=== PATIENT | female | born 1950 | race Caucasian/White ===

== ENCOUNTER → 2020-03-15 12:30 | Outpatient (BNVA) | payer MEDICARE, SELFPAY | PROVIDERS: Visit Provider Internal Medicine | DX: I25.10 Atherosclerotic heart disease of native coronary artery without angina pectoris (principal); E78.5 Hyperlipidemia, unspecified; Z95.5 Presence of coronary angioplasty implant and graft | CPT/HCPCS: 93005; 99212 ==

== ENCOUNTER 2020-03-19 07:18 | Outpatient (REF) | payer MEDICARE, SELFPAY ==
[2020-03-19 08:28] LABS: Alanine Aminotransferase 22 U/L (0-31); Albumin Level 4.1 g/dL (3.5-5.0); Alkaline Phosphatase 70 U/L (39-117); Aspartate Amino Transferase 17 U/L (5-31); Bilirubin Direct 0.2 mg/dL (0.0-0.5); Bilirubin Total 0.6 mg/dL (0.0-1.0); Cholesterol 193 mg/dL; HDL Cholesterol 65 mg/dL; LDL Cholesterol Calculated 91 mg/dl; Total Protein 6.7 g/dL (6.5-8.0); Triglycerides 188 mg/dL
== END 2020-03-19 07:19 | disposition home or self-care (01) ==
LOC: HO.LAB 07:18
PROVIDERS: PCP Internal Medicine; Visit Provider Internal Medicine
DX: E78.5 Hyperlipidemia, unspecified (principal); I25.10 Atherosclerotic heart disease of native coronary artery without angina pectoris
CPT/HCPCS: 36415; 80061; 80076

== ENCOUNTER 2020-03-30 16:02 | Outpatient (REF) | payer MEDICARE, SELFPAY ==
[2020-03-30 16:47] LABS: MANUAL DIFF FLAG NO
[2020-03-30 16:50] LABS: Basophils Percent Auto 0.5 % (0-2); Eosinophils Absolute Auto 0.1 X10*3/uL (0.0-0.4); Eosinophils Percent Auto 1.7 % (0-4); Hemoglobin 14.6 g/dl (12.0-16.0); Imm Gran Abs Auto 0.01 X10*3/uL (0.00-0.03); Imm Gran Pct Auto 0.1 % (0.0-0.4); Lymphocytes Absolute Auto 2.4 X10*3/uL (1.2-4.9); Lymphocytes Percent Auto 29.1 % (20-40); Mean Corpuscular HGB Conc 33.2 g/dl (31.0-35.0); Mean Corpuscular Hemoglobin 29.6 pg (27.0-33.0); Mean Corpuscular Volume 89.1 fL (80-98); Mean Platelet Volume 10.1 fL (9.4-12.3); Monocytes Absolute Auto 0.8 X10*3/uL (0.1-1.2); Monocytes Percent Auto 9.9 % (2-11); Neutrophils Absolute Auto 4.8 X10*3/uL (2.0-8.3); Neutrophils Percent Auto 58.7 % (45-73); Platelet Count 259 X10*3/uL (160-400); Red Blood Count 4.94 X10*6/uL (4.20-5.50); Red Cell Distribution Width 12.8 % (11.0-16.0); White Blood Count 8.2 X10*3/uL (4.8-10.8)
[2020-03-30 17:13] LABS: Alanine Aminotransferase 25 U/L (0-31); Albumin Level 4.4 g/dL (3.5-5.0); Alkaline Phosphatase 64 U/L (39-117); Anion Gap 12 (12-20); Aspartate Amino Transferase 22 U/L (5-31); Bilirubin Total 0.4 mg/dL (0.0-1.0); Blood Urea Nitrogen 21 mg/dL (9-16); Calcium 9.8 mg/dL (8.4-10.2); Carbon Dioxide 28 mmol/L (22-29); Chloride 107 mmol/L (96-108); Estimated Glomerular Filt Rate 49; Glucose Random 82 mg/dL (60-115); Potassium 5.2 mmol/L (3.3-5.1); Sodium 142 mmol/L (135-145); Total Protein 7.2 g/dL (6.5-8.0)
== END 2020-03-30 16:03 | disposition home or self-care (01) ==
LOC: HO.LAB 16:02
PROVIDERS: PCP Internal Medicine; Visit Provider Internal Medicine
DX: I12.9 Hypertensive chronic kidney disease with stage 1 through stage 4 chronic kidney disease, or unspecified chronic kidney disease (principal); N18.9 Chronic kidney disease, unspecified; I25.10 Atherosclerotic heart disease of native coronary artery without angina pectoris
CPT/HCPCS: 36415; 80053; 85025

== ENCOUNTER 2020-09-05 15:08 | Emergency (ER) | payer MEDICARE, SELFPAY ==
--- NOTE | ~2020-09-05 | XR_ITS ---
EXAMINATION: XR FOOT, RIGHT CLINICAL INFORMATION: Status post hyperextension injury. Pain at the base of the fourth and fifth toes. COMPARISON: None TECHNIQUE: AP, lateral, and oblique views of the right foot. FINDINGS: There is a minimally displaced oblique fracture distal fifth metatarsal with mild soft tissue swelling. No additional fractures seen. There is no dislocation. There is a moderate-sized retrocalcaneal enthesophyte. XR/XR foot RT min 3V IMPRESSION: Oblique displaced fracture distal fifth metatarsal with mild soft tissue swelling. Moderate-sized retrocalcaneal enthesophyte.
[2020-09-05 15:15] VITALS: BP 159/72; PULSE 71; RESP 16; TEMP 37.1; O2SAT 96; BMI 35.2
--- NOTE | 2020-09-05 15:18 | ED.LOWEXIN ---
HPI - Extremity Injury (Lower) General Chief Complaint: Extremity Injury, Lower Stated Complaint: Slipped on some stairs Time Seen by Provider: 09/05/20 15:17 Source: patient Mode of arrival: ambulatory Limitations: no limitations History of Present Illness HPI Narrative: 69 y/o female with history of CAD s/p stent in 2014, HLD who is presenting with right foot pain after she tripped going up stairs at home in her basement just prior to arrival. She report hitting her toes on the step and her 4th and 5th toes bend upward. She had immediate pain, some swelling and bruising. She is unable to walk on her right foot so she came to the ER for further evaluation. She denies any ankle, knee or hip injury. She did not fall, hit her head or lose consciousness. MD complaint: foot injury Onset (ago): hour(s) (1) Injury: Right: foot and toes Type of Injury: hyperextension Place: home Severity: moderate Severity scale (1-10): 5 Relieving factors: immobilization and rest Exacerbating factors: weight bearing, movement and palpation Associated symptoms: swelling and unable to bear weight Other symptoms: none Treatments prior to arrival: cold therapy Related Data Home Medications Medication Instructions Recorded Confirmed aspirin 81 mg tablet,delayed 81 mg PO DAILY 03/15/20 03/15/20 release atorvastatin 80 mg tablet 80 mg PO DAILY 03/15/20 03/15/20 Previous Rx's Medication Instructions Recorded ibuprofen 600 mg PO Q8H PRN #20 tab 09/05/20 oxycodone 5 mg PO Q8H PRN #6 tab 09/05/20 Allergies Allergy/AdvReac Type Severity Reaction Status Date / Time No Known Allergies Allergy Verified 09/05/20 15:15 [No Known Allergies*] Review of Systems Review of Systems: Constitutional: No Fever, No Chills CV: no chest pain Gastrointestinal: No Nausea, No Vomiting, No abdominal Pain Musculoskeletal: + joint pain, No Myalgias Skin: No Skin Lesions, No rash Neuro: No Weakness, No Numbnes Heme/Lymph: + Bruising, No Lymphadenopathy PMFSH Past Medical History Attestation statement: The following information was validated with the patient. Medical History Atherosclerotic cardiovascular disease Other and unspecified hyperlipidemia Surgical History History of cardiac catheterization (~05/09/14) Stented coronary artery Family History Family History (Updated 03/15/20 @ 12:50 by LEONID Fernandez) Father Cancer Mother Cancer Social History Social History (Updated 03/15/20 @ 12:47 by LEONID Fernandez) Advance Directives: No Advance Directives Information Provided: No Physical Exam Vital Signs: Vital Signs: Last Vital Signs Temp 98.7 F 09/05/20 15:15 Pulse 71 09/05/20 15:15 Resp 16 09/05/20 15:15 BP 159/72 H 09/05/20 15:15 Pulse Ox 96 09/05/20 15:15 Body Mass Index 35.2 Appearance: Alert. Oriented X3. No acute distress. HEENT: normal inspection CVS: Normal heart rate and rhythm. Pulses normal. Respiratory: No respiratory distress. Skin: Skin warm and dry. Normal skin color. Normal skin turgor. No rashes. Extremities: right foot with mild ecchymosis and swelling at the base of digits 4 and 5, tender to touch at distal tarsals, able to wiggles toes, good cap refill. normal right ankle inspection, normal ROM, Neuro: Oriented X 3. No motor deficit. No sensory deficit. Unable to assess gait due to pain Course Course Course Narrative: 69 y/o female presenting with right lateral foot pain and bruising after she tripped on her basement stairs today. Unable to bear weight due to pain. Will get XR's for further evaluation. Reevaluation(s) Reevaluation #1: XR showing Oblique displaced fracture distal fifth metatarsal with mild soft tissue swelling. Ortho TT for recs. Reevaluation #2: Rachel recommending non-operative management at this time. NWB and f/u in the clinic in 7-[address] in boot and provide crutches. She is stable for d/c home with pain control and ortho follow up. Consultations Consultation #1: Ortho - Rachel Villafuerte PA-C Discharge Plan Discharge Clinical Impression: Broken foot Qualifiers: Encounter type: initial encounter Fracture type: closed Laterality: right Qualified Code(s): S92.901A - Unspecified fracture of right foot, initial encounter for closed fracture Patient Disposition: Home, Self-Care Instructions: Foot Fracture in Adults (ED) Additional Instructions: Your x-ray today showed a broken bone in your foot. Orthopedics are recommending NON-WEIGHT BEARING status of your right foot. Wear the Boot provided in the ER for support and comfort. Elevate and ice your foot when possible to help with swelling and discomfort. Take the prescribed medications as needed for pain. Recommend Tylenol 975 mg every 6 hours around the clock. Follow up with Orthopedics in 7-10 days in the office - number listed below. Prescriptions: New ibuprofen 600 mg tablet 600 mg PO Q8H PRN (Reason: pain) Qty: 20 RF: 0 oxycodone 5 mg tablet 5 mg PO Q8H PRN (Reason: pain) Qty: 6 RF: 0 No Action atorvastatin 80 mg tablet 80 mg PO DAILY RF: 0 aspirin 81 mg tablet,delayed release (DR/EC) 81 mg PO DAILY RF: 0 Referrals: Rachel Villafuerte PA-C [[facility] [employer]] - 1 week (Oblique displaced fracture distal fifth metatarsal with mild soft tissue swelling.)
== END 2020-09-05 16:40 | disposition home or self-care (01) ==
PROVIDERS: Emergency Provider Emergency Medicine; PCP Internal Medicine
DX: S92.901A Unspecified fracture of right foot, initial encounter for closed fracture (principal); M79.671 Pain in right foot; I25.10 Atherosclerotic heart disease of native coronary artery without angina pectoris; W10.9XXA Fall (on) (from) unspecified stairs and steps, initial encounter; Y93.9 Activity, unspecified; Y92.009 Unspecified place in unspecified non-institutional (private) residence as the place of occurrence of the external cause; Y99.9 Unspecified external cause status; Z79.899 Other long term (current) drug therapy; Z79.82 Long term (current) use of aspirin
CPT/HCPCS: 73630; 99284

== ENCOUNTER 2020-09-17 07:43 | Outpatient (REF) | payer MEDICARE, SELFPAY ==
--- NOTE | ~2020-09-17 | XR_ITS ---
EXAMINATION: XR FOOT, RIGHT CLINICAL INFORMATION: Fracture follow-up COMPARISON: 09/05/2020 TECHNIQUE: AP, lateral, and oblique views of the right foot. FINDINGS: There is an enthesophyte of the Achilles insertion onto the posterior calcaneus. Oblique fracture of the distal metadiaphysis of the fifth metatarsal with approximately 0.3 cm medial displacement of the distal fragment. Currently, no periosteal reaction at the fracture site. Otherwise, metatarsals are unremarkable. The comminuted fracture of the proximal phalanx of the fourth toe is mildly displaced and unchanged compared to 09/05/2020. Soft tissues are swollen in the forefoot. XR/XR foot RT min 3V IMPRESSION: * Currently, no evidence of healing of the displaced oblique fracture of the fifth metatarsal. * Also, no evidence of healing of the mildly displaced, comminuted fractures of the fourth proximal phalanx.
== END 2020-09-17 07:44 | disposition home or self-care (01) ==
LOC: HO.HOSX 07:43
PROVIDERS: Visit Provider Physician Assistant
DX: S92.351A Displaced fracture of fifth metatarsal bone, right foot, initial encounter for closed fracture (principal)
CPT/HCPCS: 73630; 99202

== ENCOUNTER 2020-10-08 07:35 | Outpatient (REF) | payer MEDICARE, SELFPAY ==
--- NOTE | ~2020-10-08 | XR_ITS ---
EXAMINATION: XR FOOT, RIGHT CLINICAL INFORMATION: Fifth metatarsal fracture. COMPARISON: Right foot radiographs dated 09/17/2020. TECHNIQUE: AP, lateral, and oblique views of the right foot. FINDINGS: Redemonstration of an oblique 5th metatarsal fracture in unchanged anatomic alignment. Redemonstration of a mildly displaced, comminuted 4th proximal phalangeal fracture in unchanged anatomic alignment. No new fracture or dislocation. No abnormal soft tissue calcification. No osseous erosion. Dorsal calcaneal enthesophyte. XR/XR foot RT min 3V IMPRESSION: Fifth metatarsal fracture in unchanged anatomic alignment. Fourth proximal phalangeal fracture in unchanged anatomic alignment.
== END 2020-10-08 07:36 | disposition home or self-care (01) ==
LOC: HO.HOSX 07:35
PROVIDERS: Visit Provider Physician Assistant
DX: S92.351D Displaced fracture of fifth metatarsal bone, right foot, subsequent encounter for fracture with routine healing (principal); W10.8XXD Fall (on) (from) other stairs and steps, subsequent encounter
CPT/HCPCS: 73630; 99212

== ENCOUNTER 2020-10-30 07:59 | Outpatient (REF) | payer MEDICARE, SELFPAY ==
--- NOTE | ~2020-10-30 | XR_ITS ---
EXAMINATION: XR FOOT, RIGHT CLINICAL INFORMATION: Fifth metatarsal fracture. COMPARISON: Most recent right foot radiographs dated 10/08/2020. TECHNIQUE: AP, lateral, and oblique views of the right foot. FINDINGS: Redemonstration of an oblique fracture through the 5th metatarsal in unchanged anatomic alignment. Comminuted, minimally displaced proximal 4th phalangeal fracture in unchanged anatomic alignment with new bone/callus formation. No acute fracture or dislocation. Dorsal calcaneal enthesophyte. XR/XR foot RT min 3V IMPRESSION: Fifth metatarsal fracture in unchanged anatomic alignment. Proximal 4th phalangeal fracture in unchanged anatomic alignment with new bone/callus formation.
== END 2020-10-30 08:00 | disposition home or self-care (01) ==
LOC: HO.HOSX 07:59
PROVIDERS: Visit Provider Physician Assistant
DX: S92.351D Displaced fracture of fifth metatarsal bone, right foot, subsequent encounter for fracture with routine healing (principal)
CPT/HCPCS: 73630; 99212

== ENCOUNTER 2020-12-11 07:57 | Outpatient (REF) | payer MEDICARE, SELFPAY ==
--- NOTE | ~2020-12-11 | XR_ITS ---
EXAMINATION: XR FOOT, RIGHT CLINICAL INFORMATION: Pain right foot. COMPARISON: None TECHNIQUE: AP, lateral, and oblique views of the right foot. FINDINGS: There is mildly displaced old fracture distal fifth metatarsal. Very minimal callus formation seen. Nondisplaced fracture involving the proximal phalanx fourth digit is noted and is stable. There are no new fractures seen. There is mild lateral foot soft tissue swelling. The ankle mortise and subtalar joints are normal. There is a moderate size retrocalcaneal heel enthesophyte. The soft tissues are normal.. XR/XR foot RT min 3V IMPRESSION: Mildly displaced oblique fracture distal fifth metatarsal with very little callus formation. No change from 10/30/2020. Old proximal phalanx fourth medical tarsal fracture, stable or no callus formation. Moderate size retrocalcaneal enthesophyte.
== END 2020-12-11 07:58 | disposition home or self-care (01) ==
LOC: HO.HOSX 07:57
PROVIDERS: Visit Provider Physician Assistant
DX: S92.351A Displaced fracture of fifth metatarsal bone, right foot, initial encounter for closed fracture (principal)
CPT/HCPCS: 73630; 99212

== ENCOUNTER 2020-12-19 09:31 | Outpatient (REF) | payer MEDICARE, SELFPAY | END 2020-12-19 09:32 | disposition home or self-care (01) | LOC: HO.LAB 09:31 | PROVIDERS: Visit Provider Internal Medicine | DX: Z20.822 Contact with and (suspected) exposure to COVID-19 (principal) | CPT/HCPCS: C9803; U0003; U0005 ==

== ENCOUNTER 2020-12-24 08:49 | Outpatient (REF) | payer MEDICARE, SELFPAY ==
[2020-12-24 09:09] LABS: COVID-19 Test Positive (Negative)
== END 2020-12-24 08:50 | disposition home or self-care (01) ==
LOC: HO.LAB 08:49
PROVIDERS: Visit Provider Internal Medicine
DX: Z20.822 Contact with and (suspected) exposure to COVID-19 (principal)
CPT/HCPCS: 36415; 87635; C9803

== ENCOUNTER 2021-01-01 08:15 | Outpatient (REF) | payer MEDICARE, SELFPAY ==
[2021-01-01 08:37] LABS: COVID-19 Test Negative (Negative)
== END 2021-01-01 08:16 | disposition home or self-care (01) ==
LOC: HO.LAB 08:15
PROVIDERS: Visit Provider Internal Medicine
DX: Z20.822 Contact with and (suspected) exposure to COVID-19 (principal)
CPT/HCPCS: 36415; 87635; C9803

== ENCOUNTER 2021-01-10 11:34 | Outpatient (REF) | payer MEDICARE, SELFPAY ==
[2021-01-10 13:45] LABS: MANUAL DIFF FLAG NO
[2021-01-10 13:56] LABS: Basophils Absolute Auto 0.1 X10*3/uL (0.0-0.2); Basophils Percent Auto 0.8 % (0-2); Eosinophils Absolute Auto 0.2 X10*3/uL (0.0-0.4); Eosinophils Percent Auto 2.8 % (0-4); Hematocrit 42.8 % (37.0-47.0); Hemoglobin 14.3 g/dl (12.0-16.0); Imm Gran Abs Auto 0.02 X10*3/uL (0.00-0.03); Imm Gran Pct Auto 0.3 % (0.0-0.4); Lymphocytes Absolute Auto 1.7 X10*3/uL (1.2-4.9); Lymphocytes Percent Auto 25.3 % (20-40); Mean Corpuscular HGB Conc 33.4 g/dl (31.0-35.0); Mean Corpuscular Hemoglobin 29.5 pg (27.0-33.0); Mean Corpuscular Volume 88.2 fL (80.0-98.0); Mean Platelet Volume 10.6 fL (9.4-12.3); Monocytes Absolute Auto 0.7 X10*3/uL (0.1-1.2); Neutrophils Absolute Auto 3.9 x10*3/uL (2.0-8.3); Neutrophils Percent Auto 59.8 % (45-73); Platelet Count 288 X10*3/uL (160-400); Red Blood Count 4.85 X10*6/uL (4.20-5.50); Red Cell Distribution Width 12.8 % (11.0-16.0); White Blood Count 6.5 X10*3/uL (4.8-10.8)
[2021-01-10 14:41] LABS: Alanine Aminotransferase 29 U/L (0-31); Albumin Level 4.1 g/dL (3.5-5.0); Alkaline Phosphatase 70 U/L (39-117); Anion Gap 11 (12-20); Aspartate Amino Transferase 22 U/L (5-31); Bilirubin Total 0.5 mg/dL (0.0-1.0); Blood Urea Nitrogen 17 mg/dL (9-16); C Reactive Protein 0.27 mg/dL (< or = 0.50); Calcium 9.3 mg/dL (8.4-10.2); Carbon Dioxide 25 mmol/L (22-29); Chloride 105 mmol/L (96-108); Estimated Glomerular Filt Rate 54; Glucose Random 105 mg/dL (60-115); Potassium 4.3 mmol/L (3.3-5.1); Sodium 137 mmol/L (135-145); Total Protein 6.9 g/dL (6.5-8.0)
[2021-01-10 14:52] LABS: Lactate Dehydrogenase 171 U/L (122-220)
== END 2021-01-10 11:35 | disposition home or self-care (01) ==
LOC: HO.10HDL 11:34
PROVIDERS: Visit Provider Internal Medicine
DX: E78.00 Pure hypercholesterolemia, unspecified (principal); R22.9 Localized swelling, mass and lump, unspecified; Z98.890 Other specified postprocedural states
CPT/HCPCS: 36415; 80053; 83615; 85025; 86140

== ENCOUNTER 2021-02-11 09:21 | Outpatient (REF) | payer MEDICARE, SELFPAY ==
--- NOTE | ~2021-02-11 | CT_ITS ---
EXAMINATION: CT SOFT TISSUE NECK WITHOUT CONTRAST CLINICAL INFORMATION: Swelling, mass, lump. COMPARISON: None TECHNIQUE: Helical imaging was performed in the axial plane with generation of coronal and sagittal reformatted images. This CT examination was performed using dose optimization techniques as appropriate, variously including the following: *Automated exposure control *Adjustment of mA and/or kV according to patient size (this includes techniques or standardized protocols for targeted exams where dose is matched to indication/reason for exam; i.e. extremities or head) *Use of iterative reconstruction technique DLP: 299 mGy-cm FINDINGS: Where the marker has been placed along the right posterior neck no soft tissue mass or edema seen. No cervical adenopathy is identified. The parotid glands are homogeneous in attenuation. The submandibular glands are normal. No contour abnormality or pathologic enhancement is seen within the oral cavity or pharyngeal mucosal space. The laryngeal structures are normal. The parapharyngeal fat is preserved. The carotid sheath vasculature opacify normally. No extra mucosal soft tissue mass or fluid collection is seen. No retropharyngeal fluid collection is seen. The thyroid gland is normal. The superior mediastinum is unremarkable. The lung apices are clear. There is mild mucoperiosteal thickening bilateral maxillary sinuses. Rest of the paranasal sinuses and mastoid air cells are well aerated. The temporomandibular joints are normal. No periapical disease is identified. No osseous abnormalities are seen. The imaged portions of the brain parenchyma are unremarkable. CT/CT soft tissue neck wo con IMPRESSION: No soft tissue mass or edema seen along the right posterior neck where a lead marker has been placed.
== END 2021-02-11 09:22 | disposition home or self-care (01) ==
LOC: HO.CT 09:21
PROVIDERS: PCP Internal Medicine; Visit Provider Internal Medicine
DX: R22.1 Localized swelling, mass and lump, neck (principal)
CPT/HCPCS: 70490

== ENCOUNTER → 2021-03-18 07:57 | Outpatient (BNVA) | payer MEDICARE, SELFPAY | PROVIDERS: PCP Internal Medicine; Referring Provider Internal Medicine; Visit Provider Internal Medicine | DX: I25.10 Atherosclerotic heart disease of native coronary artery without angina pectoris (principal); R07.2 Precordial pain; E78.5 Hyperlipidemia, unspecified; R04.0 Epistaxis; Z95.5 Presence of coronary angioplasty implant and graft | CPT/HCPCS: 93005; 99212 ==

== ENCOUNTER → 2021-04-03 07:41 | Outpatient (REF) | payer MEDICARE, SELFPAY ==
--- NOTE | ~2021-04-03 | NM_ITS ---
Lexiscan Myocardial perfusion study Indication: Chest pain, assess for coronary disease and ischemia Technique: The patient was brought in for a Lexiscan perfusion study on 04/03/2021 and was injected 0.4 mg of Lexiscan intravenously. Within a minute of this injection 25 mCi of sestamibi was given intravenously. Images were obtained using the SPECT gamma camera interlaced with the gating device. Images were obtained in supine position. Resting perfusion study was performed on 04/04/2021. Patient was administered 25 mCi of sestamibi intravenously at rest. Images were then obtained in supine position. Total DLP 109mGy-cm. Images were processed with the software and compared side to side in short axis, horizontal long axis and vertical long axis views. Findings: Raw acquisition was reviewed. The stress perfusion study showed no significant perfusion abnormality. Both uncorrected as well as CT attenuation corrected images were reviewed. The gated study shows normal LV systolic function with calculated LVEF of 67%. LV cavity is normal in size. The gated study shows normal wall thickening and contraction of segments. Resting study shows no significant perfusion abnormality. Gating at rest reveals normal wall motion with ejection fraction at 68%. The findings are consistent with no reversible or fixed perfusion abnormality. NM/NM cardiolite stress test Impression: 1. Myocardial perfusion imaging study shows normal myocardial perfusion. No evidence of any ischemia or infarction. 2. Gated LVEF is 67% during stress and 68% during rest. 3. Transient ischemic dilatation not present. EKG component of the test reported separately.
--- NOTE | 2021-04-03 07:44 | CA_ITS ---
Acquisition Time: 2021-04-03 07:40:39 Total Exercise Time: 00:02:00 Test Indications: Chest Pain Medications: ASA ATORVASTATIN Protocol: LEXISCAN Max HR: 123 BPM 83% of Pred: 148 BPM Max BP: 144/084 mmHG Max Work Load: 1.0 METS Pharmacological stress test with Lexiscan injection, while sitting and kicking her legs, with moderate sob post injection, no chest discomfort, without arrythmia, with normotensive response to injection, with nondiagnostic EKG for ischemia. At 6.5 min recovery she reported persistent headache and not yet feeling normal which was treated with Aminophylline 75mg IVP to reverse Lexiscan with resolution of symptom. Nuclear images pending. Test reviewed with Dr Reyes. Test was ordered as exercise nuclear stress test. She reported inability to exercise on treadmill due to sob with exertion and foot discomfort fromprior fracture. Test was then changed to a pharmacological nuclear stress test. Referred By: Oh Rao Overread By: PEPE LORENZO
== END ==
LOC: HO.CARD 07:41
PROVIDERS: Visit Provider Internal Medicine
DX: R07.2 Precordial pain (principal)
CPT/HCPCS: 78452; 93017; A9500; J0280; J2785

== ENCOUNTER → 2021-05-06 12:45 | Outpatient (REF) | payer MEDICARE, SELFPAY ==
--- NOTE | 2021-05-06 12:49 | CA_ITS ---
Transthoracic Echocardiogram Patient (Last, First, Middle): So Davalos A Gender: Female Date of : 1950 Age: 70 Procedure Date: 05/06/2021 Procedure Type: Transthoracic Echocardiogram Location: OP Height: 152.4 cm Weight: 81.65 kg BSA: 1.78 m2 Heart Rate: bpm BP: 130 / 75 mmHg Nutrition Faculty Member: YR/TO Referring MD: Oh Rao MD Symptoms: I25.10 - Atherosclerotic heart disease of [place] coronary... Study Quality: Fair ECG Rhythm: Sinus Conclusions: - The left ventricular systolic function is normal. The calculated ejection fraction is 67% by biplane method. - There is mild calcification of the aortic valve. There is mild aortic valve regurgitation. Findings Left Ventricle Normal left ventricular cavity size. There is normal left ventricular wall thickness. The left ventricular systolic function is normal. The calculated ejection fraction is 67% by biplane method. There is no evidence of regional wall motion abnormalities. Diastolic function is normal for age. Right Ventricle Normal right ventricular cavity size and systolic function. Atria Both atria are normal in size. Aortic Valve There is a normal trileaflet aortic valve. There is mild calcification of the aortic valve. There is no aortic valve stenosis. There is mild aortic valve regurgitation. Mitral Valve The mitral valve appears normal. There is trace mitral valve regurgitation. There is no mitral valve stenosis. Pulmonic Valve The pulmonic valve was not well visualized. Tricuspid Valve Normal tricuspid valve structure. There is trace tricuspid valve regurgitation. The pulmonary artery systolic pressure is normal. Great Vessels The aortic annulus, sinuses of valsalva, and asc aorta are normal in size. Venous The inferior vena cava is normal in size and collapses greater than 50% with inspiration. Pericardium/Pleural There is no evidence of pericardial effusion. Prior Study Comparison No significant change compared to prior study dated: 01/18/2018. Measurements 2D Linear Measurements IVSd: 0.93 0.6-0.9/0.6-1.0 cm LVIDd: 4.33 3.9-5.3/4.2-5.9 cm LVIDd Index: 2.43 2.4-3.2/2.2-3.1 cm/m2 LVIDs: 2.87 2.0-3.6 cm LVPWd: 0.84 0.7-1.1 cm LA Diam: 3.50 2.7-3.8/3.0-4.0 cm LAIDs Index: 1.97 1.5-2.3 cm/m2 LV Mass: 151.86 67-162/88-224 g LV Mass Index: 85.32 43-95/49-115 g/m2 LVOT Diam: 2.00 3.0+(-)1.3 cm 2D Systolic Function EF 4C: 68.90 >55% EF 2C: 62.40 >55% EF BiP: 66.50 >55% Mitral Valve MV Pk E: 0.67 MV PK A: 0.76 MV Decel Time: 227.00 E/A: 0.90 E'Lateral: 10.00 E'Medial: 7.07 E/E' Med: 9.50 E/E' Lat: 6.70 PHT: 67.00 MVA PHT: 3.28 Decel [place]: 2.96 Aortic Valve AoV Pk Tani: 1.62 AoV Mn Tani: 1.13 AoV VTI: 0.37 AoV Pk Grad: 10.00 Aov Mn Grad: 6.00 [place] Cont.VTI: 2.21 AI Pk Tani: 3.37 AI [place]: 1.64 LVOT LVOT Pk Tani: 1.12 LVOT Mn Tani: 0.72 LVOT VTI: 0.26 LVOT Pk Grad: 5.00 LVOT Mn Grad: 3.00 LVOT Diam: 2.00 LVOT Area: 3.14 Diastolic Function MV Pk E: 0.67 MV Pk A: 0.76 E/A: 0.90 E'Medial: 7.07 E/E' Med: 9.50 E' Laterial: 10.00 E/E' Lat: 6.70 Right Ventricle TAPSE (mm): 25.20 TVS' Tani: 14.80 Tricuspid Valve TR Pk Tani: 2.29 TR Pk Grad: 21.00 RA Press: 3.00 RVSP: 24.00 Great Vessels Aorta Sinus of Valsalva: 3.00 2.0-3.[address] [place]: 2.98 1.7-3.4 cm Ao Asc: 3.50 2.1-3.4 cm Ao Arch: 2.60 Updated in Other Vendor System with Status of Final hO Rao MD electronically signed on 05/07/2021 12:02:10 PM with status of Final
== END ==
LOC: HO.CARD 12:45
PROVIDERS: Visit Provider Internal Medicine
DX: I25.10 Atherosclerotic heart disease of native coronary artery without angina pectoris (principal); R07.2 Precordial pain
CPT/HCPCS: 93306

== ENCOUNTER → 2021-05-20 13:40 | Outpatient (BNVA) | payer MEDICARE, SELFPAY | PROVIDERS: PCP Internal Medicine; Referring Provider Internal Medicine; Visit Provider Internal Medicine | DX: I25.10 Atherosclerotic heart disease of native coronary artery without angina pectoris (principal); E78.5 Hyperlipidemia, unspecified; R04.0 Epistaxis; I10 Essential (primary) hypertension; Z95.5 Presence of coronary angioplasty implant and graft | CPT/HCPCS: 93005; 99212 ==

== ENCOUNTER 2021-11-23 08:05 | Outpatient (REF) | payer MEDICARE, SELFPAY ==
--- NOTE | ~2021-11-23 | XR_ITS ---
EXAMINATION: XR LUMBOSACRAL SPINE CLINICAL INFORMATION: Low back pain. COMPARISON: None TECHNIQUE: Three views of the lumbosacral spine. FINDINGS: There is normal lumbar lordosis. There is mild levoscoliosis upper lumbar spine. The vertebral heights, alignment and disc heights are normal. There is mild loss of L5-S1, L1-L2 and L2-L3 disc heights with mild ventral spondylosis. There is mild endplate sclerosis at L1-L2 disc level. No acute fracture or lytic process seen. Mild bilateral facet arthropathy seen at the L4-L5 and L5/S1 disc levels. The paravertebral soft tissues are normal. XR/XR lumbar spine 2-3V IMPRESSION: Mild degenerative disc changes L1-L2, L2-L3 and -S1 disc levels with ventral spondylosis. There is bilateral L4-L5 and L5-S1 facet joint arthropathy.
[2021-11-23 08:24] LABS: MANUAL DIFF FLAG NO
[2021-11-23 09:20] LABS: Basophils Absolute Auto 0.1 X10*3/uL (0.0-0.2); Basophils Percent Auto 0.9 % (0-2); Eosinophils Absolute Auto 0.2 X10*3/uL (0.0-0.4); Eosinophils Percent Auto 2.8 % (0-4); Hematocrit 43.7 % (37.0-47.0); Hemoglobin 14.6 g/dl (12.0-16.0); Imm Gran Abs Auto 0.01 X10*3/uL (0.00-0.03); Imm Gran Pct Auto 0.2 % (0.0-0.4); Lymphocytes Percent Auto 36.5 % (20-40); Mean Corpuscular HGB Conc 33.4 g/dl (31.0-35.0); Mean Corpuscular Hemoglobin 29.9 pg (27.0-33.0); Mean Corpuscular Volume 89.4 fL (80.0-98.0); Mean Platelet Volume 10.4 fL (9.4-12.3); Monocytes Absolute Auto 0.6 X10*3/uL (0.1-1.2); Neutrophils Absolute Auto 2.6 x10*3/uL (2.0-8.3); Neutrophils Percent Auto 48.6 % (45-73); Platelet Count 251 X10*3/uL (160-400); Red Blood Count 4.89 X10*6/uL (4.20-5.50); White Blood Count 5.4 X10*3/uL (4.8-10.8)
[2021-11-23 09:42] LABS: Appearance Urine Cloudy; Color Urine Yellow; Glucose Urine UA Negative (Negative); Leukocyte Esterase Urine Large (3+) (Negative); Nitrite Urine Negative (Negative); Specific Gravity - Urine 1.025 (1.005-1.025); UMIC TRIGGER UA YES; Urine Blood Small (1+) (Negative); Urine Ketones Negative (Negative); Urine Protein Negative (Neg-Trace)
[2021-11-23 09:59] LABS: Alanine Aminotransferase 27 U/L (0-31); Albumin Level 4.2 g/dL (3.5-5.0); Alkaline Phosphatase 67 U/L (39-117); Anion Gap 15 (12-20); Aspartate Amino Transferase 20 U/L (5-31); Bilirubin Total 0.3 mg/dL (0.0-1.0); Blood Urea Nitrogen 22 mg/dL (9-16); C Reactive Protein 0.26 mg/dL (< or = 0.50); Calcium 9.8 mg/dL (8.4-10.2); Carbon Dioxide 26 mmol/L (22-29); Chloride 107 mmol/L (96-108); Estimated Glomerular Filt Rate 55; Glucose Random 95 mg/dL (60-115); Potassium 5.6 mmol/L (3.3-5.1); Sodium 142 mmol/L (135-145); Total Protein 6.8 g/dL (6.5-8.0)
[2021-11-23 10:16] LABS: Bacteria Urine 4+ (None Seen); Hyaline Casts Urine 0-2 /LPF (0-2); Squamous Epithelial Cell Urine >20 /HPF (0-2); WBC Urine >50 /HPF (0-5)
== END 2021-11-23 08:06 | disposition home or self-care (01) ==
LOC: HO.LAB 08:05
PROVIDERS: PCP Internal Medicine; Visit Provider Internal Medicine
DX: M54.9 Dorsalgia, unspecified (principal); R10.9 Unspecified abdominal pain; I25.10 Atherosclerotic heart disease of native coronary artery without angina pectoris
CPT/HCPCS: 36415; 72100; 80053; 81001; 85025; 86140

== ENCOUNTER 2021-11-27 07:28 | Outpatient (REF) | payer MEDICARE, SELFPAY ==
[2021-11-27 08:42] LABS: Anion Gap 17 (12-20); Blood Urea Nitrogen 18 mg/dL (9-16); Calcium 9.3 mg/dL (8.4-10.2); Carbon Dioxide 21 mmol/L (22-29); Chloride 107 mmol/L (96-108); Estimated Glomerular Filt Rate 54; Glucose Random 94 mg/dL (60-115); Potassium 4.3 mmol/L (3.3-5.1); Sodium 141 mmol/L (135-145)
== END 2021-11-27 07:29 | disposition home or self-care (01) ==
LOC: HO.LAB 07:28
PROVIDERS: PCP Internal Medicine; Visit Provider Internal Medicine
DX: N18.9 Chronic kidney disease, unspecified (principal)
CPT/HCPCS: 36415; 80048

== ENCOUNTER → 2022-05-21 13:37 | Outpatient (BNVA) | payer MEDICARE, SELFPAY | PROVIDERS: PCP Internal Medicine; Referring Provider Internal Medicine; Visit Provider Internal Medicine | DX: I25.10 Atherosclerotic heart disease of native coronary artery without angina pectoris (principal); I10 Essential (primary) hypertension; E78.5 Hyperlipidemia, unspecified; Z95.5 Presence of coronary angioplasty implant and graft | CPT/HCPCS: 93005; 99212 ==

== ENCOUNTER → 2022-06-03 07:38 | Outpatient (REF) | payer MEDICARE, SELFPAY ==
--- NOTE | ~2022-06-03 | NM_ITS ---
Lexiscan Myocardial perfusion study Indication: Chest pain, assess for coronary disease ischemia Technique: The patient was brought in for a Lexiscan perfusion study on 06/03/2022 and was injected 0.4 mg of Lexiscan intravenously. Within a minute of this injection 25 mCi of sestamibi was given intravenously. Images were obtained using the SPECT gamma camera interlaced with the gating device. Images were obtained in supine position. Resting perfusion study was performed on 06/04/2022. Patient was administered 25 mCi of sestamibi intravenously at rest. Images were then obtained in supine position. Images were processed with the software and compared side to side in short axis, horizontal long axis and vertical long axis views. Total DLP 107mGy-cm. Findings: Raw acquisition reviewed. The stress perfusion study showed no significant perfusion abnormality. Both uncorrected as well as CT attenuation corrected images were reviewed. The gated study shows normal LV systolic function with calculated LVEF of 70%. LV cavity is normal in size. The gated study shows normal wall thickening and contraction of segments. Resting study shows no significant perfusion abnormality. Gating at rest reveals normal wall motion with ejection fraction at 64%. The findings are consistent with no clear reversible or fixed perfusion defects. NM/NM cardiolite stress test Impression: 1. Myocardial perfusion imaging study shows likely normal myocardial perfusion. 2. Gated LVEF is 70% during stress and 64% during rest. 3. Transient ischemic dilatation not present. EKG component of the test reported separately.
--- NOTE | 2022-06-03 07:41 | CA_ITS ---
Transthoracic Echocardiogram Patient (Last, First, Middle): So Davalos A Gender: Female Date of : 1950 Age: 71 Procedure Date: 06/03/2022 Procedure Type: Transthoracic Echocardiogram Location: OP Height: 152.4 cm Weight: 79.83 kg BSA: 1.77 m2 Heart Rate: bpm BP: 140 / 82 mmHg [employer]: TO Referring MD: Oh Rao MD Cardiopulmonary Specialist: Ramon Centeno MD Symptoms: I25.10 - Atherosclerotic heart disease of [place] coronary artery without... Study Quality: Fair ECG Rhythm: Sinus Conclusions: - 1. Normal LV systolic and diastolic filling pattern 2. Mild aortic and mitral regurgitation 3. Normal RV systolic pressure 4. No gross pericardial effusion Findings Left Ventricle Normal left ventricular size, thickness, and systolic function. The visually estimated ejection fraction is between 60-65%. Spectral Doppler is indicative of a normal filling pattern. Peak GLS is -19.3%, within normal limits. Right Ventricle Normal right ventricular cavity size and systolic function. Atria Both atria are normal in size. There is lipomatous hypertrophy of the interatrial septum. There is no evidence of interatrial shunt. Aortic Valve There is mild calcification of the aortic valve. There is no aortic valve stenosis. There is mild aortic valve regurgitation. Mitral Valve There is mild anterior and posterior mitral leaflet thickening. There is mild mitral valve regurgitation. There is no mitral valve stenosis. Pulmonic Valve The pulmonic valve is likely normal. There is trace pulmonic valve regurgitation. Tricuspid Valve Normal tricuspid valve structure. There is trace tricuspid valve regurgitation. The right ventricular systolic pressure is normal. The right ventricular systolic pressure is 25 mmHg. Normal right atrial pressure. There is no evidence of pulmonary hypertension. Great Vessels All visible segments of the aorta are normal in size. The pulmonary artery was not well visualized. Venous The inferior vena cava is normal in size and collapses greater than 50% with inspiration. Pericardium/Pleural There is no evidence of pericardial effusion. Measurements 2D Linear Measurements IVSd: 0.85 0.6-0.9/0.6-1.0 cm LVIDd: 4.55 3.9-5.3/4.2-5.9 cm LVIDd Index: 2.57 2.4-3.2/2.2-3.1 cm/m2 LVIDs: 2.54 2.0-3.6 cm LVPWd: 0.72 0.7-1.1 cm LA Diam: 3.80 2.7-3.8/3.0-4.0 cm LAIDs Index: 2.15 1.5-2.3 cm/m2 LV Mass: 140.78 67-162/88-224 g LV Mass Index: 79.53 43-95/49-115 g/m2 LVOT Diam: 2.00 3.0+(-)1.3 cm 2D Systolic Function EF 4C: 59.90 >55% EF 2C: 60.90 >55% EF BiP: 60.60 >55% Mitral Valve MV Pk E: 0.93 MV PK A: 0.78 MV Decel Time: 213.00 E/A: 1.20 E'Lateral: 7.72 E'Medial: 5.87 E/E' Med: 15.80 E/E' Lat: 12.00 PHT: 62.00 MVA PHT: 3.55 Decel [place]: 4.35 Aortic Valve AoV Pk Tani: 1.73 AoV Mn Tani: 1.10 AoV VTI: 0.39 AoV Pk Grad: 12.00 Aov Mn Grad: 6.00 [place] Cont.VTI: 1.72 AI Pk Tani: 3.98 AI [place]: 2.52 LVOT LVOT Pk Tani: 0.84 LVOT Mn Tani: 0.55 LVOT VTI: 0.21 LVOT Pk Grad: 3.00 LVOT Mn Grad: 1.00 LVOT Diam: 2.00 LVOT Area: 3.14 Diastolic Function MV Pk E: 0.93 MV Pk A: 0.78 E/A: 1.20 E'Medial: 5.87 E/E' Med: 15.80 E' Laterial: 7.72 E/E' Lat: 12.00 Right Ventricle TAPSE (mm): 19.50 TVS' Tani: 10.00 Tricuspid Valve TR Pk Tani: 2.36 TR Pk Grad: 22.00 RA Press: 3.00 RVSP: 25.00 Great Vessels Aorta Sinus of Valsalva: 2.81 2.0-3.5 cm Ao Asc: 3.60 2.1-3.4 cm Updated in Other Vendor System with Status of Final Ramon Centeno MD electronically signed on 06/04/2022 3:07:12 PM with status of Final
--- NOTE | 2022-06-03 09:00 | CA_ITS ---
Acquisition Time: 2022-06-03 08:55:22 Total Exercise Time: 00:02:19 Test Indications: PRECORDIAL PAIN, ASCD W/O ANGINA Medications: Protocol: FREDY Max HR: 181 BPM 123% of Pred: 147 BPM Max BP: 182/074 mmHG Max Work Load: 4.6 METS Exercise stress test 2 min 19 sec of Fredy protocol (stage one speed reduced 1.5mph) achieving 96% MPHR, with severe SOB with need to stop, 1/10 chest discomfort in recovery, without arrythmia, without EKG changes. Treadmill stopped and patient assisted to sitting position with improvement in SOB and chest pressure. Test changed to a pharmacological stress test with Lexiscan injection while sitting and kicking her legs. with mild SOB, no chest discomfort, without arrythmia, with normotensive response to injection, without EKG changes. Nuclear images pending. Test reviewed with Taryn Cox. Referred By: Oh Rao Overread By: PEPE LORENZO
== END ==
LOC: HO.CARD 07:38
PROVIDERS: PCP Internal Medicine; Visit Provider Internal Medicine
DX: R07.2 Precordial pain (principal); I25.10 Atherosclerotic heart disease of native coronary artery without angina pectoris
CPT/HCPCS: 78452; 93017; 93306; 93356; A9500; J0280; J2785

== ENCOUNTER 2022-09-10 07:52 | Outpatient (AMB) | payer MEDICARE, SELFPAY ==
[2022-09-10 08:19] VITALS: BP 140/72; PULSE 70; BMI 33.8
--- NOTE | 2022-09-10 08:19 | MHC.OFFVIS ---
Intake Vital Signs 09/10/22 08:19 Height 5 ft Weight 173 lb 4.533 oz BMI 33.8 BP 140/72 H Blood Pressure Location Lt brachial Position Sitting Pulse 70 Intake Visit Reasons: f/up testing Intake Note: follow up testing Vice President For Instruction Required: No Accompanied by: Self / Same As Patient Allergies No Known Allergies [No Known Allergies*] Allergy (Verified 09/10/22 08:21) Medication List - Last Reconciled 09/10/22 by Oh Rao MD amlodipine 5 mg PO DAILY aspirin 81 mg PO DAILY atorvastatin 80 mg PO DAILY HPI HPI Comments History of Present Illness Details So returns for follow-up regarding coronary artery disease. Last time, she had mentioned chest pains that she thought was due to stress from taking care from other. She had stated that it was also similar to the time when she had stent put in. Because of this, she underwent echocardiogram and stress testing. Now she states that she no longer has the pain everything is resolved completely. Otherwise back to normal self essentially. No other cardiac symptoms. 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 Review of Systems Const Denies weakness ENT Denies dizziness Card Denies chest pain, Denies chest pain with activity, Denies syncope, Denies rapid heart rate, Denies pedal edema, Denies edema, Denies leg edema, Denies lightheadedness, Denies palpitations, Denies dyspnea, Denies dyspnea on exertion and Denies orthopnea Resp Denies cough, Denies dyspnea and Denies dyspnea on exertion GI Denies hematochezia and Denies change in stool character Musc Denies abnormal gait, Denies muscle cramps, Denies muscle weakness, Denies numbness, Denies radiating pain into limb and Denies tingling Neuro Denies abnormal gait, Denies dizziness, Denies syncope, Denies numbness, Denies tingling and Denies weakness Endo Denies palpitations Physical Exam Vital Signs: Last Vital Signs Pulse 70 09/10/22 08:19 BP 140/72 H 09/10/22 08:19 BMI result Body Mass Index 33.8 Const General: comfortable and no acute distress Orientation/consciousness: patient oriented x3 HEENT Other: Unremarkable Head: Yes normal to inspection Neck Neck: Yes normal visual inspection Chest Chest palpation & inspection: normal inspection of the chest Resp Auscultation: clear to auscultation bilaterally Cardio Palpation: normal PMI Heart sounds: S1 normal heart sound present, S2 normal heart sound present, no gallops, no murmurs and no rubs GI Palpation (GI): Soft to palpation Back/Spine/Pelvis Other: unremarkable Skin General skin exam: no rashes or lesions noted Neuro General: patient oriented x3 Extrem General: Yes normal to inspection Psych Mental Status: mental status grossly normal Assessment & Plan Assessment & Plan (1) Atherosclerotic cardiovascular disease: Code(s): I25.10 - Atherosclerotic heart disease of [place] coronary artery without angina pectoris (2) Stented coronary artery: Code(s): Z95.5 - Presence of coronary angioplasty implant and graft (3) Essential hypertension: Code(s): I10 - Essential (primary) hypertension (4) Other and unspecified hyperlipidemia: Code(s): E78.5 - Hyperlipidemia, unspecified Plan Cardiac studies reviewed. Cardiac catheterization from 2015 reviewed. She had proximal LAD disease that was stented. No significant disease elsewhere. Echocardiogram with LVEF of 60-65%. Peak LV GLS -19%. Mild aortic and mitral regurgitation. Lexiscan perfusion imaging unremarkable. Optimize risk factors. Blood pressure is borderline high. Advised to do home blood pressures. If necessary, can go up on the amlodipine dosing. Has taken beta-blockers in the past but not currently and there is history of some side effects. For dyslipidemia, on statins. She already has a pending request for lipids and can complete. Follow-up in 1 year. In the interim, she will call with concerns. Coding Level of Care Code Est Pt Level 4 (98712) Diagnoses Atherosclerotic cardiovascular disease I25.10 Stented coronary artery Z95.5 Essential hypertension I10 Other and unspecified hyperlipidemia E78.5
== END 2022-09-10 08:33 | disposition home or self-care (01) ==
PROVIDERS: Visit Provider Internal Medicine
DX: I25.10 Atherosclerotic heart disease of native coronary artery without angina pectoris (principal); Z95.5 Presence of coronary angioplasty implant and graft; I10 Essential (primary) hypertension; E78.5 Hyperlipidemia, unspecified
CPT/HCPCS: 99214

== ENCOUNTER → 2022-09-10 07:52 | Outpatient (BNVA) | payer MEDICARE, SELFPAY | PROVIDERS: Visit Provider Internal Medicine | DX: I25.10 Atherosclerotic heart disease of native coronary artery without angina pectoris (principal); I10 Essential (primary) hypertension; E78.5 Hyperlipidemia, unspecified; Z95.5 Presence of coronary angioplasty implant and graft | CPT/HCPCS: 99212 ==

== ENCOUNTER 2022-09-11 06:58 | Outpatient (REF) | payer MEDICARE, SELFPAY ==
[2022-09-11 09:59] LABS: Alanine Aminotransferase 20 U/L (0-31); Alkaline Phosphatase 68 U/L (39-117); Aspartate Amino Transferase 15 U/L (5-31); Bilirubin Direct 0.2 mg/dL (0.0-0.5); Bilirubin Total 0.4 mg/dL (0.0-1.0); Cholesterol 207 mg/dL; HDL Cholesterol 60 mg/dL; LDL Cholesterol Calculated 113 mg/dl; Total Protein 7.1 g/dL (6.5-8.0); Triglycerides 170 mg/dL
== END 2022-09-11 06:59 | disposition home or self-care (01) ==
LOC: HO.LAB 06:58
PROVIDERS: PCP Internal Medicine; Visit Provider Internal Medicine
DX: I25.10 Atherosclerotic heart disease of native coronary artery without angina pectoris (principal); E78.5 Hyperlipidemia, unspecified
CPT/HCPCS: 36415; 80061; 80076

== ENCOUNTER 2023-05-01 15:16 | Outpatient (REF) | payer MEDICARE, SELFPAY ==
--- NOTE | ~2023-05-01 | XR_ITS ---
EXAMINATION: XR HIP, RIGHT CLINICAL INFORMATION: Pain. COMPARISON: None available. TECHNIQUE: AP and frog-leg lateral views of the right hip. FINDINGS: No fracture. Alignment is anatomic. Hip joint space is maintained. Soft tissues are unremarkable. There are multiple pelvic phleboliths. XR/XR hip RT min 2V IMPRESSION: Normal right hip.
--- NOTE | ~2023-05-01 | XR_ITS ---
EXAMINATION: XR SHOULDER, RIGHT CLINICAL INFORMATION: Pain. COMPARISON: None available. TECHNIQUE: AP external rotation, Grashey, scapular Y, and axillary views of the right shoulder. FINDINGS: Bony alignment and mineralization are normal. The glenohumeral joint is intact and shows mild osteoarthritic change. The acromioclavicular and coracoclavicular intervals are normal. There is a tiny distal acromial undersurface osteophyte. There is cortical irregularity and subcortical cyst formation of the greater tuberosity of the proximal right humerus. No fracture or dislocation is seen. There is no soft tissue calcification or foreign body. No right pneumothorax is seen. XR/XR shoulder RT min 2V IMPRESSION: 1. There is mild osteoarthritic change of the right glenohumeral joint. 2. Findings suggest right rotator cuff impingement; no alejandro calcific tendinitis is noted.
== END 2023-05-01 15:17 | disposition home or self-care (01) ==
LOC: HO.XRAY 15:16
PROVIDERS: PCP Internal Medicine; Visit Provider Internal Medicine
DX: M25.511 Pain in right shoulder (principal); M25.551 Pain in right hip
CPT/HCPCS: 73030; 73502

== ENCOUNTER 2023-05-02 07:29 | Outpatient (REF) | payer MEDICARE, SELFPAY ==
[2023-05-02 07:43] LABS: MANUAL DIFF FLAG NO
[2023-05-02 07:56] LABS: Basophils Percent Auto 0.8 % (0-2); Eosinophils Absolute Auto 0.2 X10*3/uL (0.0-0.4); Eosinophils Percent Auto 3.4 % (0-4); Hematocrit 43.5 % (37.0-47.0); Hemoglobin 14.4 g/dl (12.0-16.0); Imm Gran Abs Auto 0.01 X10*3/uL (0.00-0.03); Imm Gran Pct Auto 0.2 % (0.0-0.4); Lymphocytes Percent Auto 38.9 % (20-40); Mean Corpuscular HGB Conc 33.1 g/dl (31.0-35.0); Mean Corpuscular Hemoglobin 29.5 pg (27.0-33.0); Mean Corpuscular Volume 89.1 fL (80.0-98.0); Mean Platelet Volume 9.5 fL (9.4-12.3); Monocytes Absolute Auto 0.5 X10*3/uL (0.1-1.2); Monocytes Percent Auto 10.1 % (2-11); Neutrophils Absolute Auto 2.4 x10*3/uL (2.0-8.3); Neutrophils Percent Auto 46.6 % (45-73); Platelet Count 248 X10*3/uL (160-400); Red Blood Count 4.88 X10*6/uL (4.20-5.50); Red Cell Distribution Width 12.7 % (11.0-16.0); White Blood Count 5.1 X10*3/uL (4.8-10.8)
[2023-05-02 08:29] LABS: Alanine Aminotransferase 21 U/L (0-31); Albumin Level 3.9 g/dL (3.5-5.0); Alkaline Phosphatase 71 U/L (39-117); Anion Gap 11 (12-20); Aspartate Amino Transferase 17 U/L (5-31); Bilirubin Total 0.5 mg/dL (0.0-1.0); Blood Urea Nitrogen 21 mg/dL (9-16); Calcium 9.6 mg/dL (8.4-10.2); Carbon Dioxide 27 mmol/L (22-29); Chloride 106 mmol/L (96-108); Cholesterol 192 mg/dL (<200); Estimated Glomerular Filt Rate 59; Glucose Random 104 mg/dL (60-115); HDL Cholesterol 61 mg/dL (>40); LDL Cholesterol Calculated 108 mg/dL (<100); Potassium 4.4 mmol/L (3.3-5.1); Sodium 140 mmol/L (135-145); Total Protein 7.1 g/dL (6.5-8.0); Triglycerides 115 mg/dL (<150)
== END 2023-05-02 07:30 | disposition home or self-care (01) ==
LOC: HO.LAB 07:29
PROVIDERS: PCP Internal Medicine; Visit Provider Internal Medicine
DX: I10 Essential (primary) hypertension (principal); E78.00 Pure hypercholesterolemia, unspecified; I25.10 Atherosclerotic heart disease of native coronary artery without angina pectoris
CPT/HCPCS: 36415; 80053; 80061; 85025

== ENCOUNTER 2023-07-03 07:36 | Outpatient (REF) | payer MEDICARE, SELFPAY ==
[2023-07-03 07:54] LABS: MANUAL DIFF FLAG NO
[2023-07-03 08:23] LABS: Basophils Percent Auto 0.7 % (0-2); Eosinophils Absolute Auto 0.1 X10*3/uL (0.0-0.4); Eosinophils Percent Auto 2.3 % (0-4); Hematocrit 44.3 % (37.0-47.0); Hemoglobin 14.7 g/dl (12.0-16.0); Imm Gran Abs Auto 0.01 X10*3/uL (0.00-0.03); Imm Gran Pct Auto 0.2 % (0.0-0.4); Lymphocytes Absolute Auto 2.2 X10*3/uL (1.2-4.9); Lymphocytes Percent Auto 35.3 % (20-40); Mean Corpuscular HGB Conc 33.2 g/dl (31.0-35.0); Mean Corpuscular Hemoglobin 29.5 pg (27.0-33.0); Mean Corpuscular Volume 88.8 fL (80.0-98.0); Mean Platelet Volume 9.9 fL (9.4-12.3); Monocytes Absolute Auto 0.6 X10*3/uL (0.1-1.2); Monocytes Percent Auto 10.5 % (2-11); Neutrophils Absolute Auto 3.1 x10*3/uL (2.0-8.3); Platelet Count 260 X10*3/uL (160-400); Red Blood Count 4.99 X10*6/uL (4.20-5.50); Red Cell Distribution Width 13.1 % (11.0-16.0); White Blood Count 6.1 X10*3/uL (4.8-10.8)
[2023-07-03 08:54] LABS: Alanine Aminotransferase 25 U/L (0-31); Alkaline Phosphatase 75 U/L (39-117); Anion Gap 16 (12-20); Aspartate Amino Transferase 21 U/L (5-31); Bilirubin Total 0.4 mg/dL (0.0-1.0); Blood Urea Nitrogen 15 mg/dL (9-16); Calcium 9.6 mg/dL (8.4-10.2); Carbon Dioxide 22 mmol/L (22-29); Chloride 107 mmol/L (96-108); Cholesterol 200 mg/dL (<200); Estimated Glomerular Filt Rate 53; Glucose Fasting 94 mg/dL (60-99); HDL Cholesterol 61 mg/dL (>40); LDL Cholesterol Calculated 102 mg/dL (<100); Potassium 4.2 mmol/L (3.3-5.1); Sodium 141 mmol/L (135-145); Total Protein 7.2 g/dL (6.5-8.0); Triglycerides 188 mg/dL (<150)
== END 2023-07-03 07:37 | disposition home or self-care (01) ==
LOC: HO.LAB 07:36
PROVIDERS: PCP Internal Medicine; Visit Provider Internal Medicine
DX: I25.10 Atherosclerotic heart disease of native coronary artery without angina pectoris (principal); E78.00 Pure hypercholesterolemia, unspecified; I10 Essential (primary) hypertension
CPT/HCPCS: 36415; 80053; 80061; 85025

== ENCOUNTER 2023-09-09 12:36 | Outpatient (AMB) | payer MEDICARE, SELFPAY ==
--- NOTE | 2023-09-09 12:42 | MHC.OFFVIS ---
Vital Signs 09/09/23 12:43 Height 5 ft Weight 177 lb 4.026 oz BMI 34.6 BP 122/72 Blood Pressure Location Lt brachial Position Sitting Pulse 65 Intake Visit Reasons: 1 year follow up Storeperson Required: No Accompanied by: Self / Same As Patient Allergies No Known Allergies [No Known Allergies*] Allergy (Verified 09/10/22 08:21) Medication List - Last Reconciled 09/09/23 by Oh Rao MD amlodipine 5 mg PO DAILY aspirin 81 mg PO DAILY atorvastatin 80 mg PO DAILY HPI Comments Details: So returns for follow-up regarding coronary artery disease. She states that she has having a lot of hip pain and lower extremity pains but otherwise nothing clearly cardiac sounding. No angina whatsoever. Otherwise, feels good. She states that she does not really follow much of a healthy diet and can eat a lot of sugary foods, donuts and similar items. Her cholesterol is slightly high. 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 Review of Systems Const Denies chills, Denies fatigue, Denies fever(s), Denies weight gain and Denies weight loss ENT Denies dizziness Card Denies chest pain, Denies leg edema, Denies lightheadedness, Denies palpitations, Reports dyspnea on exertion, Denies orthopnea and Denies other Resp Denies cough and Reports dyspnea on exertion GI Denies hematochezia and Denies change in stool character Musc Denies abnormal gait, Denies muscle weakness, Denies numbness, Denies radiating pain into limb and Denies tingling Neuro Denies abnormal gait, Denies dizziness, Denies numbness and Denies tingling Endo Denies fatigue and Denies palpitations Physical Exam Vital Signs: Last Vital Signs Pulse 65 09/09/23 12:43 BP 122/72 09/09/23 12:43 BMI result Body Mass Index 34.6 Const General: comfortable and no acute distress Orientation/consciousness: patient oriented x3 HEENT Other: Unremarkable Head: Yes normal to inspection Neck Neck: Yes normal visual inspection Chest Chest palpation & inspection: normal inspection of the chest Resp Auscultation: clear to auscultation bilaterally Cardio Palpation: normal PMI Heart sounds: S1 normal heart sound present, S2 normal heart sound present, no gallops, no murmurs and no rubs GI Palpation (GI): Soft to palpation Back/Spine/Pelvis Other: unremarkable Skin General skin exam: no rashes or lesions noted Neuro General: patient oriented x3 Extrem General: Yes normal to inspection Psych Mental Status: mental status grossly normal Office Procedures EKG Details: EKG with sinus rhythm at 65/Min; no significant ST-T changes and otherwise unremarkable. [place]. [id number], Complete Assessment & Plan Assessment & Plan (1) Atherosclerotic cardiovascular disease: Code(s): I25.10 - Atherosclerotic heart disease of [place] coronary artery without angina pectoris Category: Medical (2) Stented coronary artery: Code(s): Z95.5 - Presence of coronary angioplasty implant and graft Category: Surgical (3) Essential hypertension: Code(s): I10 - Essential (primary) hypertension Category: Medical (4) Other and unspecified hyperlipidemia: Code(s): E78.5 - Hyperlipidemia, unspecified Category: Medical Plan Cardiac studies reviewed. Cardiac catheterization from 2014 - proximal LAD disease that was stented. No significant disease elsewhere. Echocardiogram 2022- LVEF of 60-65%. Peak LV GLS -19%. Mild aortic and mitral regurgitation. Lexiscan perfusion imaging 2022 unremarkable. Overall, stable coronary disease. Continue long-term aspirin. Blood pressure seems stable on amlodipine. With regard to cholesterol, borderline high. LDL is 102 mg/dL and triglycerides 188 mg/dL. She does have a high BMI and also eats a lot of unhealthy foods. We discussed about cutting back on these. She understands. Otherwise, we discussed about adding Zetia to her statins but she would rather not want anymore medications. Hence no changes made. Regular physical activity. Follow-up in 1 year. If any concerns in the interim, she will contact us. Coding Level of Care Code Est Pt Level 4 (34175) Diagnoses Atherosclerotic cardiovascular disease I25.10 Stented coronary artery Z95.5 Essential hypertension I10 Other and unspecified hyperlipidemia E78.5 CPT Codes EKG - CPT: 34985-[id number], Complete ([id number])
[2023-09-09 12:43] VITALS: BP 122/72; PULSE 65; BMI 34.6
== END 2023-09-09 13:06 | disposition home or self-care (01) ==
PROVIDERS: PCP Internal Medicine; Visit Provider Internal Medicine
DX: I25.10 Atherosclerotic heart disease of native coronary artery without angina pectoris (principal); Z95.5 Presence of coronary angioplasty implant and graft; I10 Essential (primary) hypertension; E78.5 Hyperlipidemia, unspecified
CPT/HCPCS: 93010; 99214

== ENCOUNTER → 2023-09-09 12:36 | Outpatient (BNVA) | payer MEDICARE, SELFPAY | PROVIDERS: PCP Internal Medicine; Visit Provider Internal Medicine | DX: I25.10 Atherosclerotic heart disease of native coronary artery without angina pectoris (principal); I10 Essential (primary) hypertension; E78.5 Hyperlipidemia, unspecified; Z79.82 Long term (current) use of aspirin; Z79.899 Other long term (current) drug therapy; Z95.5 Presence of coronary angioplasty implant and graft | CPT/HCPCS: 93005; 99212 ==

== ENCOUNTER 2023-10-01 15:05 | Outpatient (REF) | payer MEDICARE, SELFPAY ==
--- NOTE | ~2023-10-01 | XR_ITS ---
EXAMINATION: XR LUMBOSACRAL SPINE CLINICAL INFORMATION: Low back pain. COMPARISON: 11/23/2021. TECHNIQUE: Three views of the lumbosacral spine. FINDINGS: -There is a mild levoconvex scoliosis with estimated Guzman angle 14 degrees, apex at L2. -There is a normal lordosis. -There is a 5 mm degenerative retrolisthesis of L1 on L2, and L2 on L3. (Worsening at L2-3). -There is a stable 2 mm degenerative anterolisthesis of L4 on L5. Alignment is otherwise anatomic. -Severe disc space narrowing with sclerotic endplate changes present at L2-3, significantly worsened. -Moderate disc degeneration at L1-L2, and T12-L1, similar. -Mild disc narrowing L5-S1, similar. -No compression deformities, fractures, or suspicious bony abnormalities. -Sclerotic facet degenerative changes present spanning L3-S1. -Mild degenerative arthritis in the right greater than left SI joints. -Soft tissues demonstrate 9 mm calcifications overlying the inferior pole of the left kidney. -There are mild vascular calcifications. XR/XR lumbar spine 2-3V IMPRESSION: 1. No acute bony findings. 2. 14 degree levoconvex scoliosis, stable. 3. Multilevel degenerative spondylosis worst at L2-3, worsening. See above. 4. Left nephrolithiasis suspected. Electronically signed by: Eh Gregory MD 11/23/2023 04:37 PM EDT
== END 2023-10-01 15:06 | disposition home or self-care (01) ==
LOC: HO.XRAY 15:05
PROVIDERS: PCP Internal Medicine; Visit Provider Internal Medicine
DX: M54.50 Low back pain, unspecified (principal)
CPT/HCPCS: 72100

== ENCOUNTER → 2023-10-01 15:10 | Outpatient (BNV) | payer MEDICARE, SELFPAY | PROVIDERS: PCP Internal Medicine; Visit Provider Radiology Diagnostic Radiology | DX: M54.50 Low back pain, unspecified (principal) | CPT/HCPCS: 72100 ==

== ENCOUNTER 2024-04-26 11:09 | Outpatient (REF) | payer MEDICARE, SELFPAY ==
--- NOTE | ~2024-04-26 | XR_ITS ---
EXAMINATION: XR CHEST CLINICAL INFORMATION: COUGH AND WHEEZE COMPARISON: February 01, 2019. TECHNIQUE: 2 views of the chest were obtained. FINDINGS: No gross consolidation, pleural effusion or pneumothorax. Mild prominence of the interstitial markings probably chronic. Cardiomediastinal silhouette size is normal. Multilevel thoracolumbar spondylosis. XR/XR chest 2V IMPRESSION: Chronic interstitial lung disease in the correct clinical settings. Electronically signed by: Yoel Lama MD 04/26/2024 11:50 AM EST
--- OUTSIDE RECORDS SUMMARY | 2024-04-26 14:00 | XMS_ITS ---
Author Organization [facility] Address [address] [place] [address] Care Team Providers Care Barrel Drainer Name Role Phone Temo Pugh MD Primary Care Provider Unavaila Jemal Valenzuela Unavailable [phone] Allergies No Known Allergies REASON FOR VISIT Painful Toe(s) Medications Medication SIG (Take, Route, Frequency, Duration) Notes Start Date End Date Status Aspirin 81 MG 1 tablet Orally Once a day Active Atorvastatin Calcium 80 MG 1 tablet Oral ly Once a day for 30 day(s) Active amLODIPine Besylate 5 MG 1 tablet Orally Once a day for 30 day(s) Active Social History Tobacco Use: Social History Observation Description Date Details (start date - stop date) Never Smoker NA - NA Tobacco Use/Smoking Question Answer Notes Are you a: nonsmoker Additional Findings: Tobacco Non-User Current no n-smoker Alcohol Screen Question Answer Notes Did you have a drink containing alcohol in the p ast year? Yes Points 0 Interpretation Negative Tobacco use other than smoking: Question Answer Notes Are you an other tobacco user? No Vital Signs Height 5ft in 12/05/2022 Weight 174 lbs 12/05/2022 BMI 33.98 kg/m2 12/05/2022 Encounters Encounter Location Date Provider Diagnosis [facility] [address] [place] [address] 12/05/2022 Jemal Bergeron Contusion of lesser toe of left foot without damage to nail, initial encounter S90.122A and Pain in left toe(s) M79.675 Assessments Encounter Date Diagnosis (ICD Code) Assessment Notes Treatment Notes Treatment Clinical Notes Section Notes 12/05/2022 Contusion of lesser toe of left foot without damage to nail, initial encounter (ICD-10 - S90.122A) Dx New problem, Prognosis Uncertain (4) 12/05/2022 Pain in left toe(s) (ICD-10 - M79.675) Plan Of Treatment Pending Test Test Name Order Date X ray : Foot, left 3V 12/05/2022 Next Appt Details Follow Up: prn, Reason: Progress Notes * IRINA So ADOB: (71 yo F)Acc No.[id number]:12/05/2022 Progress Notes Patient:?BernardRichard Provider:?Jemal Bergeron DPM :1950???Age:71 Y???Sex:Female D ate:12/05/2022 Address:[address] [place], [place] [id number] Pcp:Temo Pugh MD Subjective: * Chief Complaints: * ???Painful Toe(s) * HPI: ???Toe pain:?Nature:?aching, bruising, discoloration, swelling, tenderness, throbbing.?Location:?Left foot.?Duration:?since DOI ( 2 weeks ago).?Onset/Cause:?states traumatic ( hit on recliner).?Aggrevated by:?any pressure , shoes , standing/walking.?Treatments:?rest, ice, wrapped in bandaid.? * ROS:?General/Constitutional:?Nausea?denies.?Vomiting?denies.?Hunger Thirst?denies.?Loss appetite?denies.?Chills?denies.?Fatigue?denies.?Fever?denies.?Night Sweats?denies.?Unexplained weight loss?denies.?Unexplained weight gain?denies.?HEENTM:?Dentures?denies.?Dizziness?denies.?Glasses/contacts?admits.?Retinopathy?de nies.?Blurred/double vision?denies.?TMJ?denies.?Discharge/drainage?denies.?Implants?denies.?Sore throat?denies.?Dental implants?denies.?Hard of hearing ?denies.?Difficulty chewing/swallowing/speaking?denies.?Nose bleeds?denies.?Sore mouth?denies.?Respiratory:?On Oxygen?denies.?Pneumonia/pleurisy?denies.?Bronchitis?denies.?Emphysema?denies.?C oughing?denies.?Cough blood?denies.?Shortness of breath?denies.?Wheezing?denies.?Cardiovascular:?Pacemaker?denies.?MVP?denies.?WPW?denies.?CHF?denies.?Heart attack?denies.?Septal defect?denies.?Rapid beat?denies.?Chest pain ?denies.?Atrial Fib.?denies.?Murmur/Palpitations?denies.?Gastrointestinal:?Hemorrhoids?denies.?Stomach/Abdominal pain?denies.?Dark blood stool?denies.?Irritable bowel ?denies.?Constipation?denies.?Diarrhea?denies.?Hematology:?Swelling?denies.?Clots?denies.?Varicose Veins?denies.?Bruising?denies.?Bleeding problem?denies.?Genitourinary:?Blood urine?denies.?Frequent/Painfu/urination/bladder control?denies.?Kidney stones?denies.?Infection (UTI)?denies.?Nephropathy?denies.?sex trans dis (STD)?denies.?Prostate?denies.?Musculoskeletal:?Hammertoes?denies.?Bunions?denies.?Back Pain?denies.?Muscle Cramps/ Resting?denies.?Muscle cramps / walking?denies.?Generalized aches and pains?admits.?Weakness?denies.?Integ.:?Landeros?denies.?Scars?denies.?Corns/calluses?denies.?Ingrown nails?denies.?Painful nails?denies.?Open Sores?denies.?Rashes?denies.?Neurologic:?Difficulty sleeping?denies.?Brain disorder?denies.?Numbness?denies.?Balance trouble?denies.?Confusion?denies.?Fainting/blackouts?denies.?Tingling?denies.?Tr emors?denies.? * Medical History:? * Surgical History:?Cardiac Ken rgery - Stent Placement 05/09/2014 * Hospitalization/Major Diagno stic Procedure:?Admitted [facility] for Cardiac Issues 2014 * Family History:?Mother: dece ased, diagnosed with Other malignant neoplasm of unspecified site.?Father: .?Siblings: Heart AttackHigh Blood Pressure, diagnosed with Unspecified essential hypertension, Unspecified heart disease.? * Social History:?Tobacco Use:?Tobacco Use/Smoking?Are you a:?nonsmoker ?Additional Findings: Tobacco Non-User?Current non-smoker ?Tobacco use other than smoking?Are you an other tobacco user??No ???Drugs/Alcohol:?Drugs?Have you used drugs other than those for medical reasons in the past 12 months??No ?Alcohol Screen?Did you have a drink containing alcohol in the past year??Yes ?Points?0 ?Interpretation?Negative ???Miscellaneous:?Caffeine: yes, frequency:, 2-3 cups per day. ?Children: yes, 2. ?Marital status: . 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 * Medications:?TakingAtorvasta tin Calcium 80 MG Tablet 1 tablet Orally Once a dayamLODIPine Besylate 5 MG Tablet 1 tablet Orally Once a dayAspirin 81 MG Tablet Chewable 1 tablet Orally Once a dayMedication List reviewed and reconciled with the patientTaking Atorvastatin Calcium 80 MG Tablet 1 tablet Orally Once a dayTaking amLODIPine Besylate 5 MG Tablet 1 tablet Orally Once a dayTaking Aspirin 81 MG Tablet Chewable 1 tablet Orally Once a dayMedication List reviewed and reconciled with the patient * Allergies:?N.K.D.A.yes[Aller gies Verified] Objective: * Vitals:?Ht:5ft, Wt:174, BMI: 33.98, Shoe size:6, Wt-k.93 kg. * Examination: ???Orthopedic: ?MUSCLE STRENGTH:?5/5 all groups in a symmetrical fashion , B/L.?DIGITAL DEFORMITIES:? Reveals pain to palpation, swelling, ecchymosis, T4.?Nails: ?NAILS are:? Nail plate intact.?X-Rays - IMAGING REPORT: ?Clinical Indication(s):? Evaluate for Fracture.?Views:? 3 views of Foot, AP, LO, MO, LEFT.?Findings:?mild-moderate generalized decrease in bone density, increase in soft tissue contour and density at the symptomatic site.?Digits:?show synostosis at the DIPJ.?Fracture:?Negative fractures identified.?General Examination: ?GENERAL APPEARANCE:?Reveals a pleasant, alert, well-nourished, well- developed, well hydrated individual, who demonstrates proper attention to hygiene/body habitus, and is in no acute distress, Pt serves as own?historian for office visit today.?ORIENTED:?person, place, and time.?Neurological: ?SENSORY:?Neurological exam reveals intact sensorium, pain sensation normal, vibration sensation intact, pinprick sensation is normal in the lower extremities, Pt denies, anesthesia, burning, paresthesia, tingling, B/L.?DEEP TENDON REFLEXES:?Achilles, 2/4, B/L.?Vascular: ?DP PULSES:?3/4, B/L.?PT PULSES:?3/4, B/L.?CAPILLARY FILL TIME:?immediate, all digits, B/L.?SKIN TEMPERTURE GRADIENT OF THE LOWER EXTERMITIES:?warm to cool, proximal to distal, B/L.?HAIR GROWTH/TEXTURE/ELASTICITY/TURGOR:?normal, B/L.?PIGMENTATION:?normal, B/L.?EDEMA:?absent, B/L.?Dermatologic: ?SKIN FINDINGS:?Skin exam reveals normal texture, elasticity, and turgor. There are no masses. The interspaces are clear.? Assessment: * Assessment: 1.?Contusion of lesser toe o f left foot without damage to nail, initial encounter - S90.122A, Acute problem, Complicated w/ Multiple Tx Options(4), Dx New problem, Prognosis Uncertain (4)?2.?Pain in left toe(s) - M79.675 (Primary)? Plan: * Treatment: * Procedure Codes:?92233 X-RAY EXAM OF LEFT FOOT 3V, Modifiers: 26 , LT * Preventive Medicine:? ??Counseling:?Discussion:?-14: Office or other outpatient visit for the evaluation and management of an established patient, which required a medically appropriate history and/or examination and MODERATE level of DECISION MAKING for: 1 OR MORE CHRONIC PROBLEM(S) THATS WORSENING, 2 STABLE CHRONIC PROBLEMS, A NEWLY DIAGNOSED PROBLEM WITH UNCERTAIN PROGNOSIS, AN ACUTE COMPLICATED INJURY WITH MULTIPLE TREATMENT OPTIONS, OR AN ACUTE PROBLEM WITH ACCOMPANYING SYSTEMIC SYMPTOMS, THAT POSE(S) A MODERATE RISK OF MORBIDITY. THIS CONDITION MAY ALSO INCLUDE RX DRUG MANAGEMENT, OR A DECISON FOR MINOR SURGERY. The visit on the day of the encounter encompassed interpreting the data and educating the patient as to the nature of their condition, treatment options available according to their individual PMH, meds, allergies, and overall health/living conditions, as well as any potential risks or complications that may occur from a failure to adhere to, and participate in, the recommended course of therapy. The discussion included a complete verbal, and/or written explanation of the examination results, any x-rays taken, the proposed diagnosis, and outline of the treatment plan. A schedule for future care needs was also explained. The patient verbalized an understanding of the instructions at this time and agreed to be an active participant in their treatment. If the patient should think of any questions or concerns after the visit, I have encouraged the patient to call the office.?Digital Treatment:?I explained to the patient the risks/benefits of all the different treatment options for their pain including: No treatment at all, Rest, Ice, New/supportive/wider/deeper Shoegear, Digital Padding/Strapping/Taping/Bracing/Gel protective sleeves, Foot/Ankle AFO Bracing, Stretching exercises, Deep Tissue Massage, Arch support/shoe inserts with splay metatarsal padding, and Custom orthoses. I insisted that any digital devices be removed daily and not worn overnight for safety. The patient is to carefully examine the toes daily for any skin irritation while using any splinting or padding device. The advantages and disadvantages of each option were discussed and the patients questions re: shoegear, padding, custom vs prefabricated inserts, activity level, and consistency in home treatment regimens for optimal success were answered to their verbally confirmed satisfaction.?P.R.I.C.E.:?The patient was counseled on the use of P.R.I.C.E. and NSAIDS (if well tolerated) to aid in the recovery from their painful condition , Recommended Topical analgesics including Aspercream/Biofreeze/Voltaren gel as directed.? * Follow Up:?prn * Images: * Sign off status: Completed true * Provider:?Jemal Bergeron DPM Date:?2022 Generated for Sydnee mccoy/Cyndi/eTransmitting on:?04/26/2024 02:00 PM EST History and Physical Notes * HPI (History of Present Illness) Category Sub-Category Detail Notes Category Not es Toe pain Nature: aching, bruising , discoloration, swelling, tenderness, throbbing Location: Left foot Duration: since DOI ( 2 weeks ago) Onset/Cause: states traumatic ( h it on recliner) Aggravated by: any pressure , shoes , standing/walking Treatments: rest, ice, wrapped i n bandaid Examination Category Sub-Category Detail Notes Category Not es Neurological SENSORY: Neurological exa m reveals intact sensorium, pain sensation normal, vibration sensation intact, pinprick sensation is normal in the lower extremities, Pt denies, anesthesia, burning, paresthesia, tingling, B/L DEEP TENDON REFLEXES: Achilles, 2/4, B/L Dermatologic SKIN FINDINGS: Skin exam reveal s normal texture, elasticity, and turgor. There are no masses. The interspaces are clear Orthopedic DIGITAL DEFORMITIES: Reveals susan n to palpation, swelling, ecchymosis, T4 TAILOR'S BUNION: MUSCLE STRENGTH: 5/5 all groups in a symmetrical fashion , B/L General Examination GENERAL APPEARANCE: Reveals a pleasant, alert, well- nourished, well-developed, well hydrated individual, who demonstrates proper attention to hygiene/body habitus, and is in no acute distress, Pt serves as own historian for office visit today ORIENTED: person, place, and t seun Vascular DP PULSES (B): 3/4, B/L PT PULSES (B): 3/4, B/L CAPILLARY FILL TIME: immediate, all digi ts, B/L TEMPERTURE GRADIENT (C): warm to cool, p roximal to distal, B/L TROPHIC CONDITION-TEXTURE/ELASTICITY/TURGOR/HAIR GROWTH (B): normal, B/L EDEMA (C): absent, B/L PIGMENTATION: normal, B/L Nails NAILS are: Nail plate intact X-Rays - IMAGING REPORT Findings: mild-mod erate generalized decrease in bone density, increase in soft tissue contour and density at the symptomatic site Fracture: Negative fractures i dentified Digits: show synostosis at t he DIPJ Views: 3 views of Foot, AP, LO, MO, LEFT Clinical Indication(s): Evaluate for Fra cture
--- OUTSIDE RECORDS SUMMARY | 2024-04-26 14:00 | XMS_ITS | Patient Health Record ---
Author Organization [facility] elisha Lincoln Address [address] [place] [address] Care Team Providers Care Workforce Development Program Director Name Role Phone Temo Pugh MD Primary Care Provider Jemal Campos Unavailable [phone] Allergies No Known Allergies Reason For Referral No Information Medications Medication SIG (Take, Route, Frequency, Duration) [...] Are you an other tobacco user? No Plan Of Treatment Pending Test Test Name Order Date X ray : Foot, left 3V 12/05/2022 [id number] I&D ABSCESS- SIMPLE,SINGLE 018 Insurance Providers Payer Name Payer Address Payer Phone Subscriber Number Group Number Insured Name Patient Relationship to Insured Coverage Start Date Coverage End Date Medicare National [facility] [address] [place] [address] [id number] So Reynolds Self - patient is the insured [employer] [address] [place] [address] [id number] So [employer] Self - patient is the insured Medical (General) History Medical History History ICD Code Heart disease Measles Mumps Chicken pox Replacement Heart Valves CAD Surgical History Surgery Date(Month/Year) Cardiac Surgery - Stent Placement 2014 Hospitalization History Reason Date(Month/Year) Admitted [facility] for [facility]iac Issues 201 5
== END 2024-04-26 11:10 | disposition home or self-care (01) ==
LOC: HO.XRAY 11:09
PROVIDERS: PCP Internal Medicine; Visit Provider Family Medicine
DX: R05.9 Cough, unspecified (principal); R06.2 Wheezing
CPT/HCPCS: 71046

== ENCOUNTER → 2024-04-26 11:15 | Outpatient (BNV) | payer MEDICARE, SELFPAY | PROVIDERS: PCP Internal Medicine; Visit Provider Radiology Diagnostic Radiology | DX: R05.9 Cough, unspecified (principal); R06.2 Wheezing; J84.9 Interstitial pulmonary disease, unspecified | CPT/HCPCS: 71046 ==

== ENCOUNTER 2024-06-13 10:39 | Outpatient (AMB) | payer MEDICARE, SELFPAY ==
--- OUTSIDE RECORDS SUMMARY | 2024-06-13 10:42 | XMS_ITS | Patient Health Record ---
Author Organization [facility] elisha Clanton Address [address] [place] [address] Care Team Providers Care Salesperson Pets And Pet Supplies Name Role Phone Temo Pugh MD Primary Care Provider Jemal Campos Unavailable [phone] Allergies No Known Allergies Reason For Referral [...] X ray : Foot, left 3V 12/05/2022 [id number] I&D ABSCESS- SIMPLE,SINGLE 018 Insurance Providers Payer Name Payer Address Payer Phone Subscriber Number Group Number Insured Name Patient Relationship to Insured Coverage Start Date Coverage End Date Medicare National [facility] [address] [place] [address] [id number] So [employer] Self - patient is the insured [employer] [address] [place] [address] [id number] So Reynolds Self - patient is the insured Medical (General) History Medical History History ICD Code Heart disease Measles Mumps Chicken pox Replacement Heart Valves CAD Surgical History Surgery Date(Month/Year) Cardiac Surgery - Stent Placement 2014 Hospitalization History Reason Date(Month/Year) Admitted [facility] for Cardiac Issues 201 5
[2024-06-13 10:57] VITALS: BP 126/80; PULSE 75; TEMP 36.2; O2SAT 97; BMI 35.3
--- NOTE | 2024-06-13 10:57 | A.OFFPC_ITS ---
Vital Signs 06/13/24 10:57 Height 5 ft Weight 181 lb BMI 35.3 BP 126/80 Blood Pressure Location Lt brachial Position Sitting Pulse 75 Pulse Source Pulse Oximeter Temp 97.1 F Temp Source Axillary Pulse Oximetry (%) 97 Oxygen Delivery Method Room Air Intake Visit Reasons: Skin tag REFERRAL Needed Rn Radiology Required: No Allergies No Known Allergies [No Known Allergies*] Allergy (Verified 06/13/24 10:57) Tobacco use date assessed: 06/13/24 Fall risk assessment: No Falls in past year Last assessed Fall Risk: 06/13/24 Dental Screening Dental Screen Date: 06/13/24 Did you have a dental visit in the last 12 months?: Yes Did you have a dental problem in the last 6 months where you did not have access to dental care?: No PFSH Medical History Other and unspecified hyperlipidemia Atherosclerotic cardiovascular disease Surgical History Stented coronary artery History of cardiac catheterization (~05/09/14) Family History Father Cancer Mother Cancer Social History Housing: House Alcohol intake: current Alcohol intake frequency: a few times a month Alcohol type: beer and wine Patient Tobacco Use Status: Never used Tobacco Current occupational status: employed 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 1. Little interest or pleasure in doing things: not at all 2. Feeling down, depressed, or hopeless: not at all 3. Trouble falling or staying asleep, or sleeping too much: not at all 4. Feeling tired or having little energy: not at all 5. Poor appetite or overeating: not at all 6. Feeling bad about yourself - or that you are a failure or have let yourself or your family down: not at all 7. Trouble concentrating on things, such as reading the newspaper or watching television: not at all 8. Moving or speaking so slowly that other people could have noticed. Or the opposite - being so fidgety or restless that you have been moving around a lot more than usual: not at all 9. Thoughts that you would be better off or of hurting yourself in some way: not at all Total score: 0 Source: Developed by Drs. Percy Portillo, Elvira Green, Jeronimo Meléndez and colleagues, with an educational rupal from [employer]. Thrive Questionnaire Date Thrive assessed: 06/13/24 I am a: Patient Within the past 12 months, did the food you bought not last and you didn't have the money to get more?: Never true Within the past 12 months, did you worry whether your food would run out before you got money to buy more?: Never true Do you have trouble paying for medicines?: No Do you have trouble getting transportation to medical appointments?: No Do you have trouble paying your heating and electricity bill?: No Do you have trouble taking care of your child, family member or friend?: No Do you have trouble with day-to-day activities such as bathing, preparing meals, shopping, managing finances, etc.?: No Are you currently unemployed and looking for a job?: No Are you interested in more education?: No THRIVE Score: 0 AUDIT C Alcohol Use Questionnaire (AUDIT-C) 1. How often do you have a drink containing alcohol?: Monthly or less 2. How many drinks containing alcohol do you have on a typical day when you are drinking?: 1 or 2 3. How often do you have six or more drinks on one occasion?: Less than monthly Total Score: 2 PAMELA-7 AMB Questionnaire PAMELA-7 Date PAMELA - 7 assessed: 06/13/24 Feeling nervous, anxious, or on edge: 0 = Not at all Not being able to stop or control worryin = Not at all Worrying too much about different things: 0 = Not at all Trouble relaxin = Not at all Being so restless that it is hard to sit still: 0 = Not at all Becoming easily annoyed or irritable: 0 = Not at all Feeling afraid as if something awful might happen: 0 = Not at all Total PAMELA-7 score (0-4 normal; 5-9 mild; 10-14 moderate; 15-21 severe): 0 Source: Developed by Drs. Percy Portillo, Elvira Green, Jeronimo Meléndez and colleagues, with an educational rupal from [employer]. Physical exam (Primary Care) Vital Signs: Last Vital Signs Temp 97.1 F 06/13/24 10:57 Pulse 75 06/13/24 10:57 BP 126/80 06/13/24 10:57 Pulse Ox 97 06/13/24 10:57 Oxygen Delivery Method Room Air 06/13/24 10:57 BMI result Body Mass Index 35.3 Tobacco/Smoking Status: Tobacco use Status Tobacco use date assessed 06/13/24 06/13/24 10:58 Patient Tobacco Use Status Never used Tobacco 06/13/24 10:58 PHQ-9: PHQ-9 Score PHQ-9: Total score 0 06/13/24 10:58 Thrive Assessment: Date of Thrive Assessment Date Thrive assessed 06/13/24 06/13/24 10:58 Coding Level of Care Code New Pt Level 3 (61270) Complex EM visit Add On G2211 Diagnoses Wart of face B07.9 Assessment & Plan Assessment & Plan (1) Wart of face: Code(s): B07.9 - Viral wart, unspecified Plan: History of Present Illness The patient is a 73-year-old female presenting with concerns about a growth in her line of vision. The patient expresses that the growth has increased in size and is causing interference with her sight. Historically, the patient first noticed the growth as an obstruction in the air, and it manifested gradually growing larger over an unspecified duration. This enlargement has resulted in visual impairment, thereby necessitating surgical intervention for removal. Multiple options for effective removal were discussed. It was conveyed that opting for a surgical approach would expedite the process, although it carries the consideration of potential scarring. Social History Review of Systems - Eye: Reports visual obstruction due to enlarging growth Physical Exam General: Cooperative and healthy appearing Nutritional Appearance: Well nourished Orientation/consciousness: Patient oriented x3 Limitations: No limitations Head: Normal to inspection General: Appearance normal, both eyes and all related structures Neck: Normal visual inspection Chest: Normal palpation of entire chest wall Respiratory: Normal respiratory effort Neurology: Patient oriented x3 Results Plan The patient will be referred for surgical consultation to facilitate the excision of the visual-obstructive growth. The surgical approach is expected to be faster, and the potential for scarring was noted. Arrangements will be made promptly for the appointment, reflecting the patient's preference for a timely resolution. Patient was informed and verbally consented to the use of an ambient scribe for clinic note documentation during this visit. Discussion Notes I discussed with the patient the likely diagnosis of a visually-obstructive growth and the options for management through surgical excision or dermatological intervention. The patient inquired about the best approach, and I explained the benefits and drawbacks of each, specifically noting that surgical excision would be more expedient though might result in minimal scarring. The patient agreed to proceed with the surgical route and consent was implied for scheduling a surgical consult. I assured her that she would be contacted soon to finalize the appointment. Patient Instructions - Expect to be contacted for a surgical appointment soon. - Follow the instructions provided by the surgical team for pre- and post- procedure care. - Report any worsening in vision or new symptoms promptly. Orders: Referrals General Surgery Referral B07.9 - Viral wart, unspecified
== END 2024-06-13 11:47 | disposition home or self-care (01) ==
LOC: HO.HMCHD 10:39
PROVIDERS: PCP Internal Medicine; Visit Provider Internal Medicine
DX: B07.9 Viral wart, unspecified (principal)

== ENCOUNTER → 2024-06-13 10:39 | Outpatient (BNVA) | payer MEDICARE, SELFPAY | PROVIDERS: PCP Internal Medicine; Visit Provider Internal Medicine | DX: B07.9 Viral wart, unspecified (principal) | CPT/HCPCS: 99202 ==

== ENCOUNTER 2024-07-28 13:08 | Outpatient (AMB) | payer MEDICARE, SELFPAY ==
--- NOTE | 2024-07-28 13:24 | A.OFFVIS_ITS ---
Vital Signs 07/28/24 13:30 Height 5 ft Weight 179 lb BMI 35.0 BP 135/69 Blood Pressure Location Rt brachial Position Sitting Pulse 87 Intake Visit Reasons: wart under right eye Intake Note: Patient referred by pcp Dr. Frye for wart on Rt cheek just below eyelid. First noticed 6-8mo. 2nd concern: lesion on Lt upper cheek below eyelid. Noticed about 1m ago. Patient c/o: lesion obstructs vision. It has been enlarging, irritated. Reports no personal hx of skin CA. 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 She wants both of these removed. She denies any bleeding or pain. She does state that these lesions bother her especially when she is driving. 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0 Const General: comfortable and no acute distress Orientation/consciousness: patient oriented x3 HEENT Other: Right paranasal area below the eye - 5 mm, papillomatous lesion with a narrow base Left paranasal area below the eye - 3 mm papillomatous lesion Neck Neck: Yes no lymphadenopathy Resp Auscultation: clear to auscultation bilaterally Cardio Rhythm: regular rhythm GI Palpation (GI): Soft to palpation, nontender and no guarding Neuro General: patient oriented x3 Assessment & Plan Assessment & Plan (1) Facial skin lesion: Code(s): L98.9 - Disorder of the skin and subcutaneous tissue, unspecified Category: Medical Plan: She has 2 skin lesions on the face as described above. She wants these excised. I explained the technique of excision under local anesthesia. I reviewed the risks, benefits, and alternatives. She says she wants to proceed This will be done in the office under local anesthesia on her next visit. Coding Level of Care Code New Pt Level 3 (38712) Diagnoses Facial skin lesion L98.9
[2024-07-28 13:30] VITALS: BP 135/69; PULSE 87; BMI 35.0
--- OUTSIDE RECORDS SUMMARY | 2024-07-28 15:23 | XMS_ITS | Patient Health Record ---
Author Organization [facility] elisha [place] Address [address] [place] [address] Care Team Providers Care Manager In Home Name Role Phone Temo Pugh MD Primary Care Provider Jemal Campos Unavailable [phone] Allergies No Known Allergies Reason For Referral [...] X ray : Foot, left 3V 12/05/2022 [id number] I&D ABSCESS- SIMPLE,SINGLE 018 Insurance Providers Payer Name Payer Address Payer Phone Subscriber Number Group Number Insured Name Patient Relationship to Insured Coverage Start Date Coverage End Date Medicare National [facility] [address] [place] [address] [id number] So Reynolds Self - patient is the insured [employer] [address] [place] [address] [id number] So Reynolds Self - patient is the insured Medical (General) History Medical History History ICD Code Heart disease Measles Mumps Chicken pox Replacement Heart Valves CAD Surgical History Surgery Date(Month/Year) Cardiac Surgery - Stent Placement 2014 Hospitalization History Reason Date(Month/Year) Admitted [facility] for Cardiac Issues 201 5
== END 2024-07-28 13:50 | disposition home or self-care (01) ==
LOC: HO.HGS 13:09
PROVIDERS: PCP Internal Medicine; Visit Provider Surgery
DX: L98.9 Disorder of the skin and subcutaneous tissue, unspecified (principal)
CPT/HCPCS: 99203

== ENCOUNTER → 2024-07-28 13:08 | Outpatient (BNVA) | payer MEDICARE, SELFPAY | PROVIDERS: PCP Internal Medicine; Visit Provider Surgery | DX: L98.9 Disorder of the skin and subcutaneous tissue, unspecified (principal) | CPT/HCPCS: 99202 ==

== ENCOUNTER 2024-08-31 14:32 | Outpatient (AMB) | payer MEDICARE, SELFPAY ==
--- NOTE | 2024-08-31 14:36 | MHC.OFFVIS ---
Vital Signs 08/31/24 14:37 Height 5 ft Weight 179 lb BMI 35.0 BP 138/76 Blood Pressure Location Rt brachial Position Sitting Pulse 91 Intake Visit Reasons: excision 2 sites of face Intake Note: Patient here for lesion excision X2. Site A. Rt cheek below eyelid B. Lt cheek below eyelid. Dermatologist Required: No Accompanied by: Self / Same As Patient Allergies No Known Allergies (No Known Allergies*) Allergy (Verified 08/31/24 14:36) HPI HPI excision 2 sites of face: Details: She is here for excision of 2 skin lesions on the face at the bridge of the nose. 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 The area of the lesion on the side of the bridge of the nose and in the left side of the nose were prepped and draped. Lidocaine 1% was used for local anesthesia I made an elliptical incision in the skin surrounding this lesion on the right side of the bridge of the nose with a blade 15. This was carried down through the full-thickness of the skin and subcutaneous fat to excise this entire lesion. This was a soft, fibromatosis looking mass, about 0.6 cm in diameter. The incision was closed with full thickness nylon 6 0 interrupted sutures I made an elliptical incision of the skin surrounding the lesion on the left side of the bridge of the nose with a blade 15. This was carried down through the full-thickness of the skin and subcutaneous fat as well. This appeared to be a point . 4 cm elevated irregular lesion that resembled a cutaneous horn. The incision was closed with a single full-thickness nylon 6 0 stitch. 52793-Dbtffpad face/ear/eyelid/nose/lip/mucous membrane <0.5cm 23851-Okqvoiwu face/ear/eyelid/nose/lip/mucous membrane 0.6cm-1cm Additional procedure code (CPT) needed Assessment & Plan Assessment & Plan (1) Facial skin lesion: Code(s): L98.9 - Disorder of the skin and subcutaneous tissue, unspecified Category: Medical Plan: Excision was done in the office under local anesthesia. She tolerated procedure well. She was given wound care instructions and we will see me in the office for removal of sutures next week. Orders: Orders Surgical Today L98.9 - Disorder of the skin and subcutaneous tissue, unspecified Coding Level of Care Code Procedure Only Diagnoses Facial skin lesion L98.9 CPT Codes Face/Ear/Eyelid/Nose/Lip/Mucous Membrane - CPT: 82904-Uglmxjay face/ear/eyelid/nose/lip/mucous membrane <0.5cm ([id number]) Face/Ear/Eyelid/Nose/Lip/Mucous Membrane - CPT: 98808-Orrxgmgs face/ear/eyelid/nose/lip/mucous membrane 0.6cm-1cm ([id number])
[2024-08-31 14:37] VITALS: BP 138/76; PULSE 91; BMI 35.0
--- OUTSIDE RECORDS SUMMARY | 2024-08-31 15:05 | XMS_ITS | Patient Health Record ---
Author Organization [facility] elisha [place] Address [address] [place] [address] Care Team Providers Care Telecommunications Field Engineer Name Role Phone Temo Pugh MD Primary Care Provider Jemal Campos Unavailable [phone] Allergies No Known Allergies Reason For Referral No Information Medications Medication SIG (Take, Route, Frequency, Duration) Notes Start Date End Date Status Aspirin 81 MG 1 tablet Orally Once a day Active Atorvastatin Calcium 80 MG 1 tablet Oral ly Once a day; Duration: 30 day(s) Active amLODIPine Besylate 5 MG 1 tablet Orally Once a day; Duration: 30 day(s) Active Social History Tobacco Use: [...] X ray : Foot, left 3V 12/05/2022 [id number] I&D ABSCESS- SIMPLE,SINGLE 018 Insurance Providers Payer Name Payer Address Payer Phone Subscriber Number Group Number Insured Name Patient Relationship to Insured Coverage Start Date Coverage End Date Medicare National [facility] [address] [place] [address] [id number] So Reynolds Self - patient is the insured [employer] [address] [place] [address] [id number] So Reynolds Self - patient is the insured Medical (General) History Medical History History ICD Code Heart disease Measles Mumps Chicken pox Replacement Heart Valves CAD Surgical History Surgery Date(Month/Year) Cardiac Surgery - Stent Placement 2014 Hospitalization History Reason Date(Month/Year) Admitted [facility] for Cardiac Issues 201 5
== END 2024-08-31 15:15 | disposition home or self-care (01) ==
LOC: HO.HGS 14:33
PROVIDERS: PCP Internal Medicine; Visit Provider Surgery
DX: L82.1 Other seborrheic keratosis (principal)
CPT/HCPCS: 11440; 11441

== ENCOUNTER 2024-08-31 14:45 | Outpatient (REF) | payer MEDICARE, SELFPAY | END 2024-08-31 14:46 | disposition home or self-care (01) | LOC: HO.LNP 14:45 | PROVIDERS: Visit Provider Surgery | DX: L98.9 Disorder of the skin and subcutaneous tissue, unspecified (principal); L82.1 Other seborrheic keratosis | CPT/HCPCS: 11440; 11441; 88304; 88305 ==

== ENCOUNTER 2024-09-08 12:49 | Outpatient (AMB) | payer MEDICARE, SELFPAY ==
--- OUTSIDE RECORDS SUMMARY | 2024-09-08 13:14 | XMS_ITS | Patient Health Record ---
Author Organization [facility] elisha [place] Address [address] [place] [address] Care Team Providers Care Photogeologist Name Role Phone Temo Pugh MD Primary Care Provider Jemal Campos Unavailable [phone] Allergies No Known Allergies Reason For Referral [...] X ray : Foot, left 3V 12/05/2022 [id number] I&D ABSCESS- SIMPLE,SINGLE 018 Insurance Providers Payer Name Payer Address Payer Phone Subscriber Number Group Number Insured Name Patient Relationship to Insured Coverage Start Date Coverage End Date Medicare National [facility] [address] [place] [address] [id number] So Reynolds Self - patient is the insured [employer] Blue [employer] [address] [place] [address] [id number] oS Reynolds Self - patient is the insured Medical (General) History Medical History History ICD Code Heart disease Measles Mumps Chicken pox Replacement Heart Valves CAD Surgical History Surgery Date(Month/Year) Cardiac Surgery - Stent Placement 2014 Hospitalization History Reason Date(Month/Year) Admitted [facility] for Cardiac Issues 201 5
--- NOTE | 2024-09-08 13:16 | MHC.OFFVIS ---
Vital Signs 09/08/24 13:17 Height 5 ft Weight 174 lb 2.643 oz BMI 34.0 BP 122/68 Blood Pressure Location Lt brachial Position Sitting Pulse 72 Pulse Source Monitor Intake Visit Reasons: 1 yr f/up Allergies No Known Allergies (No Known Allergies*) Allergy (Verified 08/31/24 14:36) Medication List - Last Reconciled 09/08/24 by Oh Rao MD aspirin 81 mg PO DAILY atorvastatin 80 mg PO DAILY HPI Comments Details: So returns for follow-up regarding coronary artery disease. She seems to be doing quite well. No clear-cut angina or shortness of breath or in fact any other cardiac symptoms at this time. She states that she has not taken statins in a couple of weeks as she ran out of refills. She was prescribed Amlodipine in the past for blood pressure, but she states she took herself off as she noticed some side effects like muscle aches-however, doubt if it is a true side effect. [facility] Medical History (Updated 07/28/24 @ 13:36 by Temo Lyles MD) Facial skin lesion Other and unspecified hyperlipidemia Atherosclerotic cardiovascular disease Surgical History (Updated 09/06/24 @ 10:57 by Dania Scott Hal) Hx of surgical procedure (08/31/24) Stented coronary artery History of cardiac catheterization (~05/09/14) Family History Father Cancer Mother Cancer Social History Housing: House Alcohol intake: current Alcohol intake frequency: a few times a month Alcohol type: beer and wine Patient Tobacco Use Status: Never used Tobacco Current occupational status: employed 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 Cognitive needs: No Hearing needs: No Vision needs: Yes (reading glasses) Review of Systems Const Denies weakness ENT Denies dizziness Card Denies chest pain, Denies chest pain with activity, Denies syncope, Denies rapid heart rate, Denies pedal edema, Denies edema, Denies leg edema, Denies lightheadedness, Denies palpitations, Denies dyspnea, Denies dyspnea on exertion and Denies orthopnea Resp Denies cough, Denies dyspnea and Denies dyspnea on exertion GI Denies hematochezia and Denies change in stool character Musc Denies abnormal gait, Denies muscle cramps, Denies muscle weakness, Denies numbness, Denies radiating pain into limb and Denies tingling Neuro Denies abnormal gait, Denies dizziness, Denies syncope, Denies numbness, Denies tingling and Denies weakness Endo Denies palpitations Physical Exam Vital Signs: Last Vital Signs Pulse 72 09/08/24 13:17 BP 122/68 09/08/24 13:17 BMI result Body Mass Index 34.0 Const General: comfortable and no acute distress Orientation/consciousness: patient oriented x3 HEENT Other: Unremarkable Head: Yes normal to inspection Neck Neck: Yes normal visual inspection Chest Chest palpation & inspection: normal inspection of the chest Resp Auscultation: clear to auscultation bilaterally Cardio Palpation: normal PMI Heart sounds: S1 normal heart sound present, S2 normal heart sound present, no gallops, no murmurs and no rubs GI Palpation (GI): Soft to palpation Back/Spine/Pelvis Other: unremarkable Skin General skin exam: no rashes or lesions noted Neuro General: patient oriented x3 Extrem General: Yes normal to inspection Psych Mental Status: mental status grossly normal Office Procedures EKG Details: EKG with underlying sinus rhythm at 72/Min; no ischemic changes; [place] [address]-Uicrqvojgkulwhlio, Complete Assessment & Plan Assessment & Plan (1) Atherosclerotic cardiovascular disease: Code(s): I25.10 - Atherosclerotic heart disease of [place] coronary artery without angina pectoris Category: Medical (2) Stented coronary artery: Code(s): Z95.5 - Presence of coronary angioplasty implant and graft Category: Surgical (3) Essential hypertension: Code(s): I10 - Essential (primary) hypertension Category: Medical (4) Other and unspecified hyperlipidemia: Code(s): E78.5 - Hyperlipidemia, unspecified Category: Medical Plan Cardiac studies reviewed. Cardiac catheterization from 2014 - proximal LAD disease that was stented. No significant disease elsewhere. Echocardiogram 2022- LVEF of 60-65%. Peak LV GLS -19%. Mild aortic and mitral regurgitation. Lexiscan perfusion imaging 2022 unremarkable. With regard to medications, she states that she would like to just take the minimum required. Hence at least continue the aspirin. She has not taken statins in a couple of weeks and advised her to continue at least that. Refill sent. In the past, we have discussed adding Zetia for dyslipidemia but she absolutely does not want anything else this time. Blood pressures have been elevated in the past but to date is normal. Due to issues with amlodipine, not adding anything else at this time. We will follow up in 1 year. In the interim, call with concerns. Discussion Notes I discussed with the patient the importance of medication adherence, particularly for her cholesterol management, and the need to refill her prescription promptly. We also talked about monitoring her blood pressure. I recommended a follow-up appointment with her primary care physician to ensure comprehensive management of her conditions. Patient was informed and verbally consented to the use of an ambient scribe for clinic note documentation during this visit. Medications: Refilled atorvastatin 80 mg PO DAILY 90 tabs 3RF I25.10 - Atherosclerotic heart disease of [place] coronary artery without angina pectoris Patient Instructions: - Refill and take your cholesterol medication as prescribed. - Monitor your blood pressure regularly. - Schedule routine follow-up appointment with your PCP as needed. Coding Level of Care Code Est Pt Level 4 (38777) Complex EM visit Add On G2211 Diagnoses Atherosclerotic cardiovascular disease I25.10 Stented coronary artery Z95.5 Essential hypertension I10 Other and unspecified hyperlipidemia E78.5 CPT Codes EKG - CPT: 36393-Tbzoowrqndyszswgw, Complete ([id number])
[2024-09-08 13:17] VITALS: BP 122/68; PULSE 72; BMI 34.0
== END 2024-09-08 13:47 | disposition home or self-care (01) ==
LOC: HO.HCS 12:50
PROVIDERS: PCP Internal Medicine; Visit Provider Internal Medicine
DX: I25.10 Atherosclerotic heart disease of native coronary artery without angina pectoris (principal); Z95.5 Presence of coronary angioplasty implant and graft; I10 Essential (primary) hypertension; E78.5 Hyperlipidemia, unspecified
CPT/HCPCS: 93010; 99214; G2211

== ENCOUNTER → 2024-09-08 12:49 | Outpatient (BNVA) | payer MEDICARE, SELFPAY | PROVIDERS: PCP Internal Medicine; Visit Provider Internal Medicine | DX: Z48.02 Encounter for removal of sutures (principal); I25.10 Atherosclerotic heart disease of native coronary artery without angina pectoris; I10 Essential (primary) hypertension; E78.5 Hyperlipidemia, unspecified; Z95.5 Presence of coronary angioplasty implant and graft; Z98.890 Other specified postprocedural states | CPT/HCPCS: 93005; 99212 ==

== ENCOUNTER 2024-09-08 13:34 | Outpatient (AMB) | payer MEDICARE, SELFPAY ==
--- NOTE | 2024-09-08 13:46 | A.OFFVIS_ITS ---
Vital Signs 09/08/24 13:47 Weight 174 lb BP 142/72 H Blood Pressure Location Lt brachial Position Sitting Pulse 76 Intake Visit Reasons: stich removal excision 2 sites of face Skip Hoist Operator Required: No Allergies No Known Allergies (No Known Allergies*) Allergy (Verified 09/08/24 13:47) Medication List - Last Reconciled 09/08/24 by Ignacio Spencer RN aspirin 81 mg PO DAILY atorvastatin 80 mg PO DAILY HPI HPI stich removal excision 2 sites of face: Details: She underwent excision of 2 lesions from the face last September 01 under local anesthesia. She denies any new complaints. 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 Cognitive needs: No Hearing needs: No Vision needs: Yes (reading glasses) Review of Systems Const Denies chills and Denies fever(s) Physical Exam Vital Signs: Last Vital Signs Pulse 76 09/08/24 13:47 BP 142/72 H 09/08/24 13:47 Const General: comfortable and no acute distress HEENT Other: Both excision sites in the area of the bridge on the nose in the left and right side are well healed, not infected, sutures intact Assessment & Plan Assessment & Plan (1) Facial skin lesion: Code(s): L98.9 - Disorder of the skin and subcutaneous tissue, unspecified Category: Medical Plan: Status post excision of lesions x2 on the face. Her path report shows seborrheic keratosis in the right and hyperkeratotic skin on the left with possible verruca. Both incisions are well healed. I removed her sutures. She understands the benign nature of the pathology. She can therefore follow up on a p.r.n. basis. Coding Level of Care Code Global (79519) Diagnoses Facial skin lesion L98.9
[2024-09-08 13:47] VITALS: BP 142/72; PULSE 76
== END 2024-09-08 14:09 | disposition home or self-care (01) ==
LOC: HO.HGS 13:35
PROVIDERS: PCP Internal Medicine; Visit Provider Surgery
DX: L98.9 Disorder of the skin and subcutaneous tissue, unspecified (principal)
CPT/HCPCS: 99024